=== PATIENT | female | born 1955 | race Caucasian/White ===

== ENCOUNTER 2019-01-20 22:23 | Inpatient (IN) | payer OTHER ==
[~2019-01-20] VITALS: Ht 160 cm; Wt 84.2 kg
[~2019-01-20 22:23] MED LIST: ACET325T33 PO; AMLO-218 PO; ASPI-817 PO; ATOR20TA38 PO; BISA10SU75 PR; CARV3.12 PO; CHOL2000 PO; FER325 PO; FURO-110 PO; GABA300C PO; GLUC1VIA7 IM; HEP5KI SC; LACT20SO2 PO; LANT3I SC; METH5SOL3 PO; NOVO3I SC; PANT40TA4 PO; POLY17PO6 PO; SAN30GM TOP; SENN-25 PO; TRAM50TA2 PO; ZOF4I IV; ZOLP5TAB PO
[2019-01-21] MEDS ORDERED: AMLO-147 PO (00:15)
[2019-01-21] MEDS ORDERED: GABA300S PO (00:15)
[2019-01-21] MEDS ORDERED: ASPI-1046 PO (00:15)
[2019-01-21] MEDS ORDERED: DOCU-144 PO (00:15)
[2019-01-21] MEDS ORDERED: SITA100T11 PO (00:15)
[2019-01-21] MEDS ORDERED: OMEP20CA16 PO (00:15)
[2019-01-21] MEDS ORDERED: ATOR-2 PO (00:15)
[2019-01-21] MEDS ORDERED: CARV3.1260 PO (00:15)
[2019-01-21] MEDS ORDERED: LISI10TA2 PO (00:15)
[2019-01-21 01:00] VITALS: BP 142/63; PULSE 68; RESP 17
[2019-01-21 02:00] VITALS: BP 126/59; RESP 18
[2019-01-21] MEDS ORDERED: ALBUTEROL/IPRATROPIUM (NEB) 3 ML AMP HHN PRN (05:30)
[2019-01-21] MEDS ORDERED: ZOLPIDEM 5 MG TAB PO PRN (05:30)
[2019-01-21] MEDS ORDERED: NACL 0.9% 3 ML SYG IV SCH (05:30)
[2019-01-21] MEDS ORDERED: LACTULOSE 30ML CUP PO PRN (05:30)
[2019-01-21] MEDS ORDERED: ACETAMINOPHEN 325 MG TAB PO PRN (05:30)
[2019-01-21] MEDS ORDERED: ONDANSETRON 4 MG INJ IV PRN (05:30)
[2019-01-21] MEDS ORDERED: BISACODYL 10 MG SUPP PR PRN (05:30)
[2019-01-21] MEDS ORDERED: METHADONE (1 MG/ML 5 ML PO UD SYG) PO SCH (06:00)
[2019-01-21] MEDS: GABAPENTIN 300 MG CAP PO SCH ×4 (06:17→22:15)
[2019-01-21] MEDS: PANTOPRAZOLE (EC) 40 MG TAB PO SCH (06:17)
[2019-01-21] MEDS: SOD CHLORIDE 0.9% 1,000 ML IV SCH ×3 (06:17→22:14)
[2019-01-21] MEDS: traMADol 50 MG TAB PO PRN ×3 (06:17→22:14)
[2019-01-21] MEDS ORDERED: PENDING SANTYL ORDER FOR WOUND CARE XX PRN (07:00)
[2019-01-21 08:36] VITALS: BP 126/60; PULSE 69; RESP 18
[2019-01-21] MEDS: HEPARIN 5,000 UNIT/1 ML VIAL SC SCH ×2 (09:05→22:14)
[2019-01-21] MEDS: FERROUS SULFATE (EC) 325 MG TAB PO SCH ×3 (09:06→22:16)
[2019-01-21] MEDS: SENNA/DOCUSATE NA (8.6MG/50MG) TAB PO SCH ×2 (09:06→22:16)
[2019-01-21] MEDS: DOCUSATE SODIUM 100 MG CAP PO SCH ×2 (09:07→22:16)
[2019-01-21] MEDS: ASPIRIN (EC) 81 MG TAB PO SCH (09:07)
[2019-01-21] MEDS: FUROSEMIDE 40 MG TAB PO SCH (09:07)
[2019-01-21] MEDS: LISINOPRIL 10 MG TAB PO SCH (09:07)
[2019-01-21] MEDS: AMLODIPINE 10 MG TAB PO SCH (09:08)
[2019-01-21] MEDS: POLYETHYLENE GLYCOL 17 GM PACKET PO SCH (09:08)
[2019-01-21] MEDS: COLLAGENASE 5 GM (UD JAR) TOP SCH (09:08)
[2019-01-21 14:19] VITALS: BP 132/63; PULSE 68; RESP 18
--- NOTE | 2019-01-21 17:29 | HP ---
Date/Time of Note Date/Time of Note DATE: 01/21/19 TIME: 17:29 Assessment/Plan VTE Prophylaxis Risk score (from Ns)>0 risk: 3 SCD applied (from [facility] [place]): No SCD contraindicated: bilateral amputee Pharmacological prophylaxis: heparin Lines/Catheters Urinary Cath still in place: No Assessment/Plan Hospital Course 63-year-old female with comorbidities including hypertension, diabetes mellitus, CAD status post CABG, peripheral vascular disease, diabetic neuropathy, dyslipidemia, chronic pain, and obesity who was transferred from an outside facility for further evaluation of right lower extremity pain and underlying rhabdomyolysis, who was admitted to inpatient setting for further treatment and evaluation. 1. Rhabdomyolysis. -Etiology unclear. -Continue IV hydration. -Hold statins. -Monitor renal function closely. 2. Right lower extremity pain. -Imaging studies from the transferring facility negative. -Continue pain control. -Continue gabapentin. 3. Diabetes mellitus type 2. -Hemoglobin A1c 13.1. -Continue sliding scale insulin along with pre-meal insulin and basal insulin. 4. Hypertension. -Continue antihypertensives. 5. Diabetic neuropathy. -Continue gabapentin. 6. CAD, status post CABG. -Continue aspirin. 7. Dyslipidemia. -Hold statins. -Low-cholesterol diet. 8. Obesity. -BMI 32 kg/m. Plan: The patient will be admitted to inpatient medical surgical floor. The patient will be started on a carbohydrate controlled diet. The patient will be started on DVT prophylaxis . The patient will remain a full code. Activities will be bedrest. The rest of the patient's management will be based on the clinical course and the results of diagnostic studies. Based on the patient's clinical presentation, she most probably requires at least 1 midnight's stay for further management and evaluation of her clinical presentation. The patient was seen in collaboration with Dr. Ruffin. Result Diagram: 01/21/19 0543 01/21/19 0543 Results 24hrs Laboratory Tests Test 01/21/19 05:43 White Blood Count 11.5 #H Red Blood Count 4.85 # Hemoglobin 13.3 # Hematocrit 40.5 # Mean Corpuscular Volume 83.5 Mean Corpuscular Hemoglobin 27.4 L Mean Corpuscular Hemoglobin Concent 32.8 Red Cell Distribution Width 13.6 Platelet Count 238 Mean Platelet Volume 10.9 #H Immature Granulocytes % 0.600 H Neutrophils % 76.1 Lymphocytes % 14.4 L Monocytes % 8.3 Eosinophils % 0.3 Basophils % 0.3 Nucleated Red Blood Cells % 0.0 Immature Granulocytes # 0.070 H Neutrophils # 8.8 H Lymphocytes # 1.7 Monocytes # 1.0 H Eosinophils # 0.0 Basophils # 0.0 Nucleated Red Blood Cells # 0.0 Sodium Level 140 Potassium Level 3.6 Chloride Level 102 Carbon Dioxide Level 26 Anion Gap 12 Blood Urea Nitrogen 23 H Creatinine 0.66 Est Glomerular Filtrat Rate mL/min > 60 Glucose Level 227 H Hemoglobin A1c 12.4 H Calcium Level 8.8 Total Bilirubin 0.6 Direct Bilirubin 0.00 Indirect Bilirubin 0.6 Aspartate Amino Transf (AST/SGOT) 69 H Alanine Aminotransferase (ALT/SGPT) 43 Alkaline Phosphatase 110 Creatine Kinase 1268 H Total Protein 6.7 Albumin 3.5 Globulin 3.20 Albumin/Globulin Ratio 1.09 Triglycerides Level 200 H Cholesterol Level 186 LDL Cholesterol, Calculated 99 HDL Cholesterol 47 Cholesterol/HDL Ratio 3.9 HPI/ROS Admit Date/Time Admit Date/Time Jan 20, 2019 at 23:08 Hx of Present Illness This is a 63-year-old female with past medical history of hypertension, diabetes mellitus type 2, peripheral vascular disease, CAD status post CABG, diabetic neuropathy, dyslipidemia, and chronic pain. The patient is a bilateral lower extremity amputee. The patient went to the local emergency room because of complaint of right lower extremity pain. The patient underwent imaging studies of the right hip and right knee at the transferring facility that was negative. However, the patient was noticed to have rhabdomyolysis. Therefore, the patient was transferred to [facility] for further management because of insurance reasons. The patient denied any fevers or chills. The patient denied any chest pain. The patient denied any dyspnea. The patient denied any nausea, vomiting, abdominal pain, or diarrhea. The patient is chronically incontinent of urine and wears a diaper. The patient denied any urinary symptoms including any changes in color, dysuria, or flank pain. ROS Constitutional: no complaints Eyes: no complaints ENT: no complaints Respiratory: no complaints Cardiovascular: no complaints Gastrointestinal: no complaints Genitourinary: other (Incontinence) Musculoskeletal: bone/joint pain Skin: no complaints Neurologic: no complaints Endocrine: no complaints Lymphatic: no complaints Psychological: no complaints Immunologic: no complaints PMH/Family/Social Past Medical History 1. Hypertension. 2. Type 2 diabetes mellitus 3. Peripheral vascular disease. 4. CAD, status post CABG. 5. Diabetic neuropathy 6. Dyslipidemia. 7. Chronic pain. 8. Obesity. Medications Current Medications Sodium Chloride 1,000 ml @ 125 mls/hr Q8H IV Last administered on 01/21/19 14:44; Admin Dose 125 MLS/HR; Start 01/21/19 at 05:22 IV Flush (NS 3 ml) 3 ml PER PROTOCOL IV ; Start 01/21/19 at 05:30 Ondansetron HCl (Zofran Inj) 4 mg Q6H PRN IV NAUSEA/VOMITING Last administered on 01/21/19 12:43; Admin Dose 4 MG; Start 01/21/19 at 05:30 Heparin Sodium (Porcine) (Heparin (5000 Units/1ml)) 5,000 unit Q12 SC Last administered on 01/21/19 09:05; Admin Dose 5,000 UNIT; Start 01/21/19 at 09:00 Albuterol/ Ipratropium (Duoneb) 3 ml Q2H RESP THERAPY PRN HHN SHORTNESS OF BREATH; Start 01/21/19 at 05:30 Acetaminophen (Tylenol Tab) 650 mg Q6H PRN PO PAIN LEVEL 1-3 OR FEVER; Start 01/21/19 at 05:30 Amlodipine Besylate (Norvasc) 10 mg DAILY PO Last administered on 01/21/19 09:08; Admin Dose 10 MG; Start 01/21/19 at 09:00 Aspirin (Halfprin) 81 mg DAILY PO Last administered on 01/21/19 09:07; Admin Dose 81 MG; Start 01/21/19 at 09:00 Atorvastatin Calcium (Lipitor) 80 mg HS PO ; Start 01/21/19 at 21:00 Bisacodyl (Dulcolax Supp) 10 mg DAILY PRN [place] CONSTIPATION; Start 01/21/19 at 05:30 Carvedilol (Coreg) 3.125 mg BID PO Last administered on 01/21/19 09:07; Admin Dose 3.125 MG; Start 01/21/19 at 09:00 Collagenase (Santyl) 1 applic DAILY TOP Last administered on 01/21/19 09:08; Admin Dose 1 APPLIC; Start 01/21/19 at 09:00 Docusate Sodium (Colace) 200 mg BID PO Last administered on 01/21/19 09:07; Admin Dose 200 MG; Start 01/21/19 at 09:00 Ferrous Sulfate (Ferrous Sulfate (Ec)) 325 mg TID PO Last administered on 01/21/19 12:43; Admin Dose 325 MG; Start 01/21/19 at 09:00 Furosemide (Lasix) 40 mg DAILY PO Last administered on 01/21/19 09:07; Admin Dose 40 MG; Start 01/21/19 at 09:00 Gabapentin (Neurontin) 300 mg TID PO Last administered on 01/21/19 12:43; Admin Dose 300 MG; Start 01/21/19 at 06:00 Insulin Glargine (Lantus) 10 units HS SC ; Start 01/21/19 at 21:00 Lactulose (Enulose) 20 gm Q6H PRN PO CONSTIPATION; Start 01/21/19 at 05:30 Lisinopril (Zestril) 10 mg DAILY PO Last administered on 01/21/19 09:07; Admin Dose 10 MG; Start 01/21/19 at 09:00 Pantoprazole (Protonix Tab) 40 mg DAILY@06 PO Last administered on 01/21/19 06:17; Admin Dose 40 MG; Start 01/21/19 at 06:00 Polyethylene Glycol (Miralax) 17 gm DAILY PO Last administered on 01/21/19 09:08; Admin Dose 17 GM; Start 01/21/19 at 09:00 Senna/Docusate Sodium (Senokot-S) 2 tab BID PO Last administered on 01/21/19 09:06; Admin Dose 2 TAB; Start 01/21/19 at 09:00 Tramadol HCl (Ultram) 50 mg Q6 PRN PO PAIN Last administered on 01/21/19 12:43; Admin Dose 50 MG; Start 01/21/19 at 05:30 Zolpidem Tartrate (Ambien) 5 mg HS PRN PO INSOMNIA; Start 01/21/19 at 05:30 [facility]iscellaneous [facility] This patient minor... PRN PRN XX WOUND CARE; Start 01/21/19 at 07:00 Coded Allergies: Penicillins (Verified Allergy, Intermediate, RASH, 03/20/16) Past Surgical History 1. CABG. 2. Right below-knee amputation. 3. Left above-knee amputation Past Surgical Hx: other Family History Significant Family History: diabetes, hypertension Social History The patient lives at home with her family. Alcohol Use: none Smoking Status: Never smoker Drug Use: none Exam/Review of Systems Vital Signs Vitals Vital Signs Date Temp Pulse Resp B/P (MAP) Pulse Ox O2 O2 Flow FiO2 Time Delivery Rate 01/21/19 97.8 68 18 132/63 92 Room Air 14:19 (86) 01/21/19 2.0 13:14 Exam Exam General: Obese,63 year-old female lying in bed in no apparent distress. HEENT: Normocephalic, atraumatic. Eyes: Anicteric sclerae, conjunctivae clear. ENT: Nasal septum midline, oral mucosa moist. Neck supple, no JVD noticed. Respiratory: Bilaterally clear breath sounds. No use of accessory muscles of respiration. No adventitious breath sounds. Cardiovascular: S1, S2 heard. Regular rate and rhythm. Abdomen: Soft, nontender, and nondistended. Bowel sounds positive in all 4 quadrants. Genitourinary: Deferred. Extremities: Below-knee amputation on the right. Above-knee amputation on the left. Neurologic: Cranial nerves II through XII grossly intact. The patient is awake, alert, and oriented. Additional Comments CT right knee without contrast No radiographic evidence for osteomyelitis. Below the knee amputation. There is no stranding in the subcutaneous fat or fluid collection. Extensive vascular calcification. No joint effusion. CT Right Femur without Contrast There is a vascular stent. Other vascular calcifications noted. There is no soft tissue mass, fluid collection, pathologic adenopathy. KODY OROZCO NP Jan 21, 2019 17:29
[2019-01-21 20:53] VITALS: BP 129/60; PULSE 69; RESP 16
[2019-01-21] MEDS ORDERED: ATORVASTATIN 80 MG TAB PO SCH (21:00)
[2019-01-21] MEDS: INSULIN GLARGINE [LANTus] (100 UNITS/ML) SYG SC SCH (22:12)
[2019-01-22] MEDS: morphine 2 MG INJ IV PRN ×4 (02:22→20:59)
[2019-01-22] MEDS ORDERED: GLUCOSE GEL 15 GRAM TUBE BUCCAL PRN (03:00)
[2019-01-22] MEDS ORDERED: GLUCAGON 1 MG INJ IM PRN (03:00)
[2019-01-22] MEDS ORDERED: GLUCOSE GEL 15 GRAM TUBE PO PRN ×2 (03:00)
[2019-01-22] MEDS ORDERED: DEXTROSE 50% 50 ML SYRINGE IV PRN ×2 (03:00)
[2019-01-22 03:28] VITALS: BP 139/63; PULSE 69; RESP 16
[2019-01-22] MEDS: PANTOPRAZOLE (EC) 40 MG TAB PO SCH (05:51)
[2019-01-22] MEDS: SOD CHLORIDE 0.9% 1,000 ML IV SCH ×3 (06:19→21:18)
[2019-01-22 07:55] VITALS: BP 133/60; PULSE 68; RESP 18
[2019-01-22] MEDS: ASPIRIN (EC) 81 MG TAB PO SCH (08:06)
[2019-01-22] MEDS: LISINOPRIL 10 MG TAB PO SCH (08:07)
[2019-01-22] MEDS: GABAPENTIN 300 MG CAP PO SCH ×3 (08:07→21:01)
[2019-01-22] MEDS: FERROUS SULFATE (EC) 325 MG TAB PO SCH ×3 (08:07→21:00)
[2019-01-22] MEDS: FUROSEMIDE 40 MG TAB PO SCH (08:08)
[2019-01-22] MEDS: AMLODIPINE 10 MG TAB PO SCH (08:08)
[2019-01-22] MEDS: POLYETHYLENE GLYCOL 17 GM PACKET PO SCH (08:08)
[2019-01-22] MEDS: DOCUSATE SODIUM 100 MG CAP PO SCH ×2 (08:09→21:01)
[2019-01-22] MEDS: SENNA/DOCUSATE NA (8.6MG/50MG) TAB PO SCH ×2 (08:09→21:09)
[2019-01-22] MEDS: HEPARIN 5,000 UNIT/1 ML VIAL SC SCH ×2 (08:10→21:06)
[2019-01-22] MEDS: COLLAGENASE 5 GM (UD JAR) TOP SCH (08:14)
[2019-01-22] MEDS: INSULIN ASPART [NOVOLOG] 3 ML PEN SC SCH ×4 (08:14→21:05)
[2019-01-22] MEDS ORDERED: POTASSIUM CHLORIDE (SR) 20 MEQ TAB PO STA (14:22)
[2019-01-22 14:53] VITALS: BP 126/60; PULSE 72; RESP 18
--- NOTE | 2019-01-22 15:06 | PN ---
Date/Time of Note Date/Time of Note DATE: 01/22/19 TIME: 15:04 Assessment/Plan VTE Prophylaxis Risk score (from Nsg)>0 risk: 4 SCD applied (from Ns): No SCD contraindicated: bilateral amputee Pharmacological prophylaxis: heparin Lines/Catheters IV Catheter Type (from Nrs): Peripheral IV Urinary Cath still in place: No Assessment/Plan Hospital Course SUBJECTIVE: Continues to complain of right lower extremity pain, on and off. OBJECTIVE: Physical Exam General: Obese,63 year-old female lying in bed in no apparent distress. HEENT: Normocephalic, atraumatic. Eyes: Anicteric sclerae, conjunctivae clear. ENT: Nasal septum midline, oral mucosa moist. Neck supple, no JVD noticed. Respiratory: Bilaterally clear breath sounds. No use of accessory muscles of respiration. No adventitious breath sounds. Cardiovascular: S1, S2 heard. Regular rate and rhythm. Abdomen: Soft, nontender, and nondistended. Bowel sounds positive in all 4 quadrants. Genitourinary: Deferred. Extremities: Below-knee amputation on the right. Above-knee amputation on the left. Neurologic: Cranial nerves II through XII grossly intact. The patient is awake, alert, and oriented. Labs & Vitals per chart ASSESSMENT & PLAN 63-year-old female with comorbidities including hypertension, diabetes mellitus, CAD status post CABG, peripheral vascular disease, diabetic neuropathy, dyslipidemia, chronic pain, and obesity who was transferred from an outside facility for further evaluation of right lower extremity pain and underlying rhabdomyolysis, who was admitted to inpatient setting for further treatment and evaluation. 1. Rhabdomyolysis. -Etiology unclear. -Continue IV hydration. -Hold statins. -Monitor renal function closely. 2. Right lower extremity pain. -Imaging studies from the transferring facility negative. -Continue pain control. -Continue gabapentin. -Obtain vascular surgery consult. 3. Diabetes mellitus type 2. -Hemoglobin A1c 13.1. -Continue sliding scale insulin along with pre-meal insulin and basal insulin. 4. Hypertension. -Continue antihypertensives. 5. Diabetic neuropathy. -Continue gabapentin. 6. CAD, status post CABG. -Continue aspirin. 7. Dyslipidemia. -Hold statins. -Low-cholesterol diet. 8. Obesity. -BMI 32 kg/m. 9. DVT prophylaxis. Subcutaneous heparin. 10. Plan.- -Continue IV fluids. -Continue pain control. -Await clinical improvement. The patient was seen in collaboration with Dr. Ruffin. Result Diagram: 01/22/1951801/22/19518 Results 24hrs Laboratory Tests Test 01/21/19 22:10 01/22/19 05:19 01/22/19 08:04 01/22/19 11:38 Bedside Glucose 270 H 169 201 White Blood Count 9.5 Red Blood Count 4.36 Hemoglobin 12.0 Hematocrit 37.4 Mean Corpuscular 85.8 Volume Mean Corpuscular 27.5 L Hemoglobin Mean Corpuscular 32.1 Hemoglobin Concent Red Cell 13.6 Distribution Width Platelet Count 159 # Mean Platelet Volume 12.0 H Immature 0.400 Granulocytes % Neutrophils % 63.3 Lymphocytes % 26.0 Monocytes % 9.3 Eosinophils % 0.5 Basophils % 0.5 Nucleated Red Blood 0.0 Cells % Immature 0.040 H Granulocytes # Neutrophils # 6.0 Lymphocytes # 2.5 Monocytes # 0.9 Eosinophils # 0.1 Basophils # 0.1 Nucleated Red Blood 0.0 Cells # Sodium Level 137 Potassium Level 3.4 L Chloride Level 102 Carbon Dioxide Level 29 Anion Gap 6 Blood Urea Nitrogen 15 Creatinine 0.54 Est Glomerular > 60 Filtrat Rate mL/min Glucose Level 202 Hemoglobin A1c 13.1 H Calcium Level 7.9 L Phosphorus Level 2.7 Magnesium Level 1.8 Creatine Kinase 1571 H Creatine Kinase 0.2 Index Creatinine Kinase MB 2.76 H (Mass) Troponin I 0.030 Exam/Review of Systems Exam Vitals Vital Signs Date Temp Pulse Resp B/P (MAP) Pulse Ox O2 O2 Flow FiO2 Time Delivery Rate 01/22/19 98.0 72 18 126/60 92 Room Air 14:53 (82) 01/21/19 2.0 13:14 Intake and Output 01/21/19 01/21/19 01/22/19 1515:00 23:00 07:00 IntakeIntake Total 1240 ml 1680 ml 1000 ml BalanceBalance 1240 ml 1680 ml 1000 ml Results Results 24hrs Laboratory Tests Test 01/21/19 22:10 01/22/19 05:19 01/22/19 08:04 01/22/19 11:38 Bedside Glucose 270 H 169 201 White Blood Count 9.5 Red Blood Count 4.36 Hemoglobin 12.0 Hematocrit 37.4 Mean Corpuscular 85.8 Volume Mean Corpuscular 27.5 L Hemoglobin Mean Corpuscular 32.1 Hemoglobin Concent Red Cell 13.6 Distribution Width Platelet Count 159 # Mean Platelet Volume 12.0 H Immature 0.400 Granulocytes % Neutrophils % 63.3 Lymphocytes % 26.0 Monocytes % 9.3 Eosinophils % 0.5 Basophils % 0.5 Nucleated Red Blood 0.0 Cells % Immature 0.040 H Granulocytes # Neutrophils # 6.0 Lymphocytes # 2.5 Monocytes # 0.9 Eosinophils # 0.1 Basophils # 0.1 Nucleated Red Blood 0.0 Cells # Sodium Level 137 Potassium Level 3.4 L Chloride Level 102 Carbon Dioxide Level 29 Anion Gap 6 Blood Urea Nitrogen 15 Creatinine 0.54 Est Glomerular > 60 Filtrat Rate mL/min Glucose Level 202 Hemoglobin A1c 13.1 H Calcium Level 7.9 L Phosphorus Level 2.7 Magnesium Level 1.8 Creatine Kinase 1571 H Creatine Kinase 0.2 Index Creatinine Kinase MB 2.76 H (Mass) Troponin I 0.030 Medications Medication Current Medications Sodium Chloride 1,000 ml @ 125 mls/hr Q8H IV Last administered on 01/22/19at 06:19; Admin Dose 125 MLS/HR; Start 01/21/19 at 05:22 IV Flush (NS 3 ml) 3 ml PER PROTOCOL IV ; Start 01/21/19 at 05:30 Ondansetron HCl (Zofran Inj) 4 mg Q6H PRN IV NAUSEA/VOMITING Last administered on 01/21/19at 12:43; Admin Dose 4 MG; Start 01/21/19 at 05:30 Heparin Sodium (Porcine) (Heparin (5000 Units/1ml)) 5,000 unit Q12 SC Last administered on 01/22/19at 08:10; Admin Dose 5,000 UNIT; Start 01/21/19 at 09:00 Albuterol/ Ipratropium (Duoneb) 3 ml Q2H RESP THERAPY PRN HHN SHORTNESS OF MAX TH; Start 01/21/19 at 05:30 Acetaminophen (Tylenol Tab) 650 mg Q6H PRN PO PAIN LEVEL 1-3 OR FEVER; Start 01/21/19 at 05:30 Amlodipine Besylate (Norvasc) 10 mg DAILY PO Last administered on 01/22/19at 08:08; Admin Dose 10 MG; Start 01/21/19 at 09:00 Aspirin (Halfprin) 81 mg DAILY PO Last administered on 01/22/19 08:06; Admin Dose 81 MG; Start 01/21/19 at 09:00 Bisacodyl (Dulcolax Supp) 10 mg DAILY PRN [place] CONSTIPATION; Start 01/21/19 at 05:30 Carvedilol (Coreg) 3.125 mg BID PO Last administered on 01/22/19 08:08; Admin Dose 3.125 MG; Start 01/21/19 at 09:00 Collagenase (Santyl) 1 applic DAILY TOP Last administered on 01/21/19 09:08; Admin Dose 1 APPLIC; Start 01/21/19 at 09:00 Docusate Sodium (Colace) 200 mg BID PO Last administered on 01/21/19 22:16; Admin Dose 200 MG; Start 01/21/19 at 09:00 Ferrous Sulfate (Ferrous Sulfate (Ec)) 325 mg TID PO Last administered on 01/22/19 13:07; Admin Dose 325 MG; Start 01/21/19 at 09:00 Furosemide (Lasix) 40 mg DAILY PO Last administered on 01/22/19 08:08; Admin Dose 40 MG; Start 01/21/19 at 09:00 Gabapentin (Neurontin) 300 mg TID PO Last administered on 01/22/19 13:07; Admin Dose 300 MG; Start 01/21/19 at 06:00 Insulin Glargine (Lantus) 10 units HS SC Last administered on 01/21/19 22:12; Admin Dose 10 UNITS; Start 01/21/19 at 21:00 Lactulose (Enulose) 20 gm Q6H PRN PO CONSTIPATION; Start 01/21/19 at 05:30 Lisinopril (Zestril) 10 mg DAILY PO Last administered on 01/22/19 08:07; Admin Dose 10 MG; Start 01/21/19 at 09:00 Pantoprazole (Protonix Tab) 40 mg DAILY@06 PO Last administered on 01/22/19 05:51; Admin Dose 40 MG; Start 01/21/19 at 06:00 Polyethylene Glycol (Miralax) 17 gm DAILY PO Last administered on 01/21/19 09:08; Admin Dose 17 GM; Start 01/21/19 at 09:00 Senna/Docusate Sodium (Senokot-S) 2 tab BID PO Last administered on 01/21/19at 22:16; Admin Dose 2 TAB; Start 01/21/19 at 09:00 Tramadol HCl (Ultram) 50 mg Q6 PRN PO PAIN Last administered on 01/21/19at 22:14; Admin Dose 50 MG; Start 01/21/19 at 05:30 Zolpidem Tartrate (Ambien) 5 mg HS PRN PO INSOMNIA; Start 01/21/19 at 05:30 Miscellaneous Information (Pending [facility] Order For Wound Care) This patient minor... PRN PRN XX WOUND CARE; Start 01/21/19 at 07:00 Morphine Sulfate (morphine) 2 mg Q4H PRN IV SEVERE PAIN LEVEL 7-10 Last administered on 01/22/19at 06:24; Admin Dose 2 MG; Start 01/22/19 at 00:00 Diagnostic Test (Pha) (Accu-Chek) 1 ea 02 XX ; Start 01/23/19 at 02:00 Insulin Aspart (Novolog Insulin Pen) NOVOLOG *MILD* ALGORITHM WITH MEALS BEDTIME SC Last administered on 01/22/19at 12:40; Admin Dose 2 UNIT; Start 01/22/19 at 08:00 Miscellaneous Information 1 ea NOTE XX ; Start 01/22/19 at 03:00 Glucose (Glutose) 15 gm Q15M PRN PO DECREASED GLUCOSE; Start 01/22/19 at 03:00 Glucose (Glutose) 22.5 gm Q15M PRN PO DECREASED GLUCOSE; Start 01/22/19 at 03:00 Dextrose (D50w Syringe) 25 ml Q15M PRN IV DECREASED GLUCOSE; Start 01/22/19 at 03:00 Dextrose (D50w Syringe) 50 ml Q15M PRN IV DECREASED GLUCOSE; Start 01/22/19 at 03:00 Glucagon (Glucagen) 1 mg Q15M PRN IM DECREASED GLUCOSE; Start 01/22/19 at 03:00 Glucose (Glutose) 15 gm Q15M PRN BUCCAL DECREASED GLUCOSE; Start 01/22/19 at 03:00 KODY OROZCO NP Jan 22, 2019 15:06
[2019-01-22] MEDS: traMADol 50 MG TAB PO PRN (17:37)
[2019-01-22 20:10] VITALS: BP 139/59; PULSE 69; RESP 18
[2019-01-22] MEDS: INSULIN GLARGINE [LANTus] (100 UNITS/ML) SYG SC SCH (21:07)
[2019-01-22] MEDS ORDERED: morphine 2 MG INJ IV STA (22:42)
[2019-01-23] MEDS: morphine 2 MG INJ IV PRN ×6 (01:53→22:01)
[2019-01-23] MEDS: ACCU-CHEK XX SCH (02:00)
[2019-01-23 02:15] VITALS: BP 149/67; PULSE 69; RESP 18
[2019-01-23] MEDS: SOD CHLORIDE 0.9% 1,000 ML IV SCH ×3 (05:43→17:31)
[2019-01-23] MEDS: PANTOPRAZOLE (EC) 40 MG TAB PO SCH (06:18)
--- NOTE | 2019-01-23 07:17 | CONS ---
Assessment/Plan Assessment/Plan Assessment/Plan (Daily) Bilateral lower extremity pain both stumps Type 2 diabetes hemoglobin A1c of 13.1 Diabetic neuropathy currently being treated which is gabapentin History of hypertension History of dyslipidemia Obesity Pain out of control bilateral lower extremity neuropathic pain Had a conversation with her concerning difficulty of treating her type of neuropathic pain. Currently she is requesting increased IV morphine but discontinue the tramadol. I have concerns about increasing the morphine which I have expressed to her. Therefore I will switch her over to MS Contin 15 mg twice daily, discontinue the IV morphine in the morning increase her gabapentin to 300 mg twice daily and 600 mg at lunch and trial of nitroglycerin ointment bilateral lower extremity stumps daily. Consultation Date/Type/Reason Admit Date/Time Jan 20, 2019 at 23:08 Date/Time of Note DATE: 01/23/19 TIME: 07:15 Hx of Present Illness 63-year-old female admitted to [facility] with bilateral hip and thigh pain. 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 Patient states her pain began to increase in severity approximately 1 week prior to this presentation. She describes as a 10/10. She has no pain medication at home other than gabapentin and Tylenol which have not been effective. She does not remember having a fall denies any trauma of any kind recently. Denies nausea vomiting associated with her pain, pain does not radiate into her flanks abdomen or buttocks. She does not describe phantom type pain bilateral lower extremities. Pain does not interfere with her physical functioning social relationship and sleeping patterns. She denies itching mental cloudiness sweating fatigue drowsiness she has no past medical history of purposeful oversedation negative mood changes she does not appear to be intoxicated she is not unkempt she has not asked for specific pain control medications she is not negotiating for higher dose of the pain control medications. I do not have the impression that she is asked of her pain command medications and response to situational stressors nor does she cheo pain control medications. Denies incontinence of feces or urine. Denies allodynia or hyperalgesia Constitutional: no complaints, improved; No chills, No diaphoresis, No disoriented, No febrile, No poor po, No requiring IVF, No requiring O2, No other Eyes: No no complaints, No pain, No discharge, No redness, No visual change, No other ENT: No no complaints, No bleeding, No pain, No congestion, No discharge, No dysphagia, No sore throat, No other Respiratory: No no complaints, No pain, No cough, No pleuritic pain, No shortness of breath, No sputum, No wheezing, No other Cardiovascular: No no complaints, No chest pain, No edema, No lightheadedness, No orthopenea, No palpitations, No paroxysmal nocturnal dyspnea, No other Gastrointestinal: No no complaints, No pain, No blood, No constipation, No decreased appetite, No diarrhea, No flatus, No nausea, No passing stool, No vomiting, No other Genitourinary: No no complaints, No bleeding, No dysuria, No discharge, No flank pain, No hematuria, No other Musculoskeletal: other (As per history of present illness) Skin: No no complaints, No bruising, No erythema, No laceration, No pruritis, No rash, No skin lesions, No other Neurologic: other (As per history of present) Endocrine: other (Type 2 diabetes) Psychological: anxiety Past Medical History Home Meds Active Scripts Tramadol HCl (Tramadol HCl) 50 Mg Tablet, 50 MG PO Q6 PRN for PAIN, #7 TAB Prov:DANIEL BRENNAN 05/05/16 Tramadol HCl (Tramadol HCl) 50 Mg Tablet, 50 MG PO Q6 PRN for PAIN, #8 TAB Prov:DANIEL BRENNAN 05/05/16 Methadone Hcl* (Methadone*) 5 Mg/5 Ml Solution, 2 MG PO Q6 for 14 Days Prov:BRANDO CARTER 03/28/16 Sennosides/Docusate Sodium (Senna-Time S Tablet) 1 Udtab Tablet, 2 TAB PO BID for 30 Days, TAB Prov:BRANDO CARTER 03/28/16 Polyethylene Glycol* (Miralax*) 17 Gm Powd.pack, 17 GM PO DAILY for 30 Days Prov:BRANDO CARTER 03/28/16 Collagenase* (Santyl*) 30 Gm Oint..gm., 1 APPLIC TOP DAILY for 30 Days Prov:BRANDO CARTER 03/28/16 Pantoprazole* (Pantoprazole*) 40 Mg Tabec, 40 MG PO DAILY@06 for 30 Days Prov:REHANA GOLD V. [employer]TER OR EXPORTER 01/29/16 Ondansetron Hcl* (Zofran*) 2 Mg/Ml Soln, 4 MG IV Q4H PRN for NAUSEA AND/OR VOMITING for 30 Days Prov:REHANA GOLD [employer] EXPORTER 01/29/16 Insulin Aspart* (Novolog Insulin Pen*) 100 Unit/Ml Soln, 0 UNIT SC WITH MEALS BEDTIME for 30 Days Prov:REHANA GOLD V[employer] EXPORTER 01/29/16 Heparin Sodium,Porcine/Pf (Heparin Na 5,000 Units/0.5 Ml) 5,000 Unit/0.5 Ml Soln, 5000 UNIT SC Q12 for 30 Days Prov:REHANA GOLD [employer]TER 01/29/16 Gabapentin* (Neurontin*) 300 Mg Cap, 300 MG PO TID for 30 Days, CAP Prov:REHANA GOLD [employer] EX[employer]TER 01/29/16 Glucagon* (Glucagen*) 1 Mg Soln, 1 MG IM Q15M PRN for DECREASED GLUCOSE for 30 Days Prov:REHANA GOLD [employer]TER 01/29/16 Bisacodyl* (Bisacodyl*) 10 Mg Supp, 10 MG [place] DAILY PRN for CONSTIPATION for 30 Days, SUPP Prov:REHANA GOLD [employer] EXPORTER 01/29/16 Acetaminophen* (Tylenol*) 325 Mg Tab, 650 MG PO Q6H PRN for PAIN LEVEL 1-3 OR FEVER for 30 Days, TAB Prov:REHANA GOLD [employer] EX[employer]TER 01/29/16 Zolpidem Tartrate (Ambien Larry) 5 Mg Tab, 5 MG PO HS PRN for INSOMNIA for 30 Days, TAB Prov:REHANA GOLD [employer]TER 01/28/16 Insulin Glargine* (Lantus*) 100 Unit/Ml Soln, 10 UNIT SC HS for 30 Days Prov:REHANA GOLD [employer]TER 01/28/16 Furosemide* (Lasix*) 20 Mg Tab, 40 MG PO DAILY for 30 Days, TAB Prov:REHANA GOLD [employer]TER 01/28/16 Ferrous Sulfate* (Ferrous Sulfate*) 325 Mg Tabec, 325 MG PO TID for 30 Days, TAB Prov:REHANA GOLD V[employer] EX[employer]TER 01/28/16 Cholecalciferol* (Vitamin D3*) 2,000 Unit Cap, 2000 UNIT PO DAILY for 30 Days, CAP Prov:GOLDREHANA V. [employer]TER OR EXPORTER 01/28/16 Carvedilol* (Coreg*) 3.125 Mg Tab, 3.125 MG PO BID for 30 Days, TAB Prov:GOLDGARCIAREHANA V. IMP[employer]TER OR EXPORTER 01/28/16 Atorvastatin Calcium* (Atorvastatin Calcium*) 20 Mg Tab, 80 MG PO HS for 30 Days, TAB Prov:GOLDREHANA V. [employer]TER OR EXPORTER 01/28/16 Aspirin* (Aspirin* EC) 81 Mg Tabec, 81 MG PO DAILY for 30 Days Prov:GOLDGARCIAREHANA V. IMPORTER OR EXPORTER 01/28/16 Amlodipine Besylate* (Norvasc*) 10 Mg Tab, 10 MG PO DAILY for 30 Days, TAB Prov:GOLDOMKARA V. IMP[employer]TER OR EXPORTER 01/28/16 Reported Medications Gabapentin (GABAPENTIN) 300 Mg/6 Ml Solution, 300 MG PO TID 01/21/19 Omeprazole* (Omeprazole*) 20 Mg Capsule.dr, 20 MG PO DAILY, #30 CAP 01/21/19 Atorvastatin* (Atorvastatin*) 80 Mg Tablet, 80 MG PO QHS, #30 TAB 01/21/19 Carvedilol* (Carvedilol*) 3.125 Mg Tablet, 3.125 MG PO BID, #60 TAB 01/21/19 Aspirin* (Aspirin* (EC)) 81 Mg Tablet.dr, 81 MG PO DAILY, TAB 01/21/19 Lisinopril* (Lisinopril*) 10 Mg Tablet, 10 MG PO DAILY, #30 TAB 01/21/19 Docusate Sodium* (Colace*) 100 Mg Capsule, 200 MG PO BID, #60 CAP 01/21/19 Amlodipine Besylate* (Amlodipine Besylate*) 10 Mg Tablet, 10 MG PO DAILY, #30 TAB 01/21/19 Sitagliptin* (Januvia*) 100 Mg Tablet, 100 MG PO BID, #30 TAB 01/21/19 Lactulose* (Lactulose*) 20 Gm/30 Ml Solution, 20 GM PO Q6H PRN for CONSTIPATION, ML 03/20/16 Medications Current Medications Sodium Chloride 1,000 ml @ 125 mls/hr Q8H IV Last administered on 01/23/19 05:43; Admin Dose 125 MLS/HR; Start 01/21/19 at 05:22 IV Flush (NS 3 ml) 3 ml PER PROTOCOL IV ; Start 01/21/19 at 05:30 Ondansetron HCl (Zofran Inj) 4 mg Q6H PRN IV NAUSEA/VOMITING Last administered on 01/21/19 12:43; Admin Dose 4 MG; Start 01/21/19 at 05:30 Heparin Sodium (Porcine) (Heparin (5000 Units/1ml)) 5,000 unit Q12 SC Last administered on 01/22/19 21:06; Admin Dose 5,000 UNIT; Start 01/21/19 at 09:00 Albuterol/ Ipratropium (Duoneb) 3 ml Q2H RESP THERAPY PRN HHN SHORTNESS OF BREATH; Start 01/21/19 at 05:30 Acetaminophen (Tylenol Tab) 650 mg Q6H PRN PO PAIN LEVEL 1-3 OR FEVER; Start 01/21/19 at 05:30 Amlodipine Besylate (Norvasc) 10 mg DAILY PO Last administered on 01/22/19 08:08; Admin Dose 10 MG; Start 01/21/19 at 09:00 Aspirin (Halfprin) 81 mg DAILY PO Last administered on 01/22/19 08:06; Admin Dose 81 MG; Start 01/21/19 at 09:00 Bisacodyl (Dulcolax Supp) 10 mg DAILY PRN [place] CONSTIPATION; Start 01/21/19 at 05:30 Carvedilol (Coreg) 3.125 mg BID PO Last administered on 01/22/19 21:10; Admin Dose 3.125 MG; Start 01/21/19 at 09:00 Collagenase (Santyl) 1 applic DAILY TOP Last administered on 01/21/19 09:08; Admin Dose 1 APPLIC; Start 01/21/19 at 09:00 Docusate Sodium (Colace) 200 mg BID PO Last administered on 01/22/19 21:01; Admin Dose 200 MG; Start 01/21/19 at 09:00 Ferrous Sulfate (Ferrous Sulfate (Ec)) 325 mg TID PO Last administered on 01/22 21:00; Admin Dose 325 MG; Start 01/21/19 at 09:00 Furosemide (Lasix) 40 mg DAILY PO Last administered on 01/22/19 08:08; Admin Dose 40 MG; Start 01/21/19 at 09:00 Gabapentin (Neurontin) 300 mg TID PO Last administered on 01/22/19at 21:01; Admin Dose 300 MG; Start 01/21/19 at 06:00 Insulin Glargine (Lantus) 10 units HS SC Last administered on 01/22/19at 21:07; Admin Dose 10 UNITS; Start 01/21/19 at 21:00 Lactulose (Enulose) 20 gm Q6H PRN PO CONSTIPATION; Start 01/21/19 at 05:30 Lisinopril (Zestril) 10 mg DAILY PO Last administered on 01/22/19 08:07; Admin Dose 10 MG; Start 01/21/19 at 09:00 Pantoprazole (Protonix Tab) 40 mg DAILY@06 PO Last administered on 01/23/19 06:18; Admin Dose 40 MG; Start 01/21/19 at 06:00 Polyethylene Glycol (Miralax) 17 gm DAILY PO Last administered on 01/21/19at 09:08; Admin Dose 17 GM; Start 01/21/19 at 09:00 Senna/Docusate Sodium (Senokot-S) 2 tab BID PO Last administered on 01/22/19 21:09; Admin Dose 2 TAB; Start 01/21/19 at 09:00 Tramadol HCl (Ultram) 50 mg Q6 PRN PO PAIN Last administered on 01/22/19at 17:37; Admin Dose 50 MG; Start 01/21/19 at 05:30 Zolpidem Tartrate (Ambien) 5 mg HS PRN PO INSOMNIA; Start 01/21/19 at 05:30 [facility]isc[facility] This patient minor... PRN PRN XX WOUND CARE; Start 01/21/19 at 07:00 Diagnostic Test (Pha) (Accu-Chek) 1 ea 02 XX ; Start 01/23/19 at 02:00 Insulin Aspart (Novolog Insulin Pen) NOVOLOG *MILD* ALGORITHM WITH MEALS BEDTIME SC Last administered on 01/22/19at 21:05; Admin Dose 1 UNIT; Start 01/22/19 at 08:00 Miscellaneous Information 1 ea NOTE XX ; Start 01/22/19 at 03:00 Glucose (Glutose) 15 gm Q15M PRN PO DECREASED GLUCOSE; Start 01/22/19 at 03:00 Glucose (Glutose) 22.5 gm Q15M PRN PO DECREASED GLUCOSE; Start 01/22/19 at 03:00 Dextrose (D50w Syringe) 25 ml Q15M PRN IV DECREASED GLUCOSE; Start 01/22/19 at 03:00 Dextrose (D50w Syringe) 50 ml Q15M PRN IV DECREASED GLUCOSE; Start 01/22/19 at 03:00 Glucagon (Glucagen) 1 mg Q15M PRN IM DECREASED GLUCOSE; Start 01/22/19 at 03:00 Glucose (Glutose) 15 gm Q15M PRN BUCCAL DECREASED GLUCOSE; Start 01/22/19 at 03:00 Morphine Sulfate (morphine) 2 mg Q3H PRN IV SEVERE PAIN LEVEL 7-10 Last admi nistered on 01/23/19at 05:41; Admin Dose 2 MG; Start 01/23/19 at 00:00 Allergies: Coded Allergies: Penicillins (Verified Allergy, Intermediate, RASH, 03/20/16) Past Surgical History Past Surgical Hx: other Social History Alcohol Use: none Smoking Status: Never smoker Drug Use: none Exam/Review of Systems Exam Vitals Vital Signs Date Temp Pulse Resp B/P (MAP) Pulse Ox O2 O2 Flow FiO2 Time Delivery Rate 01/23/19 98.6 69 18 149/67 94 02:15 (94) 01/22/19 Room Air 14:53 01/21/19 2.0 13:14 Intake and Output 01/22/19 01/22/19 01/23/19 1515:00 23:00 07:00 IntakeIntake Total 645 ml 320 ml 120 ml BalanceBalance 645 ml 320 ml 120 ml Constitutional: alert, oriented, well developed Psych: anxiety Head: normocephalic, atraumatic; No lacerations, No hematomas, No other ENMT: nl external ears & nose, nl lips & teeth, nl nasal mucosa & septum; No mucosa pink and moist, No intubated, No tympanic membranes, No other Neck: No supple, No non-tender, No jvd, No bruits, No masses, No thyromegaly, No nuchal rigidity, No other Respiratory: No clear to auscultation, No normal air movement, No congested cough, No crackles/rales, No diminished breath sounds, No intercostal retraction, No labored breathing, No respirations, No tactile fremitus, No wheezing, No other Cardiovascular: regular rate and rhythm, nl pulses; No bruits, No diastolic murmur, No edema, No gallop, No irregular rhythm, No jugular venous distention (JVD), No murmurs/extra sounds, No rub, No systolic murmur, No S3, No S4, No other Gastrointestinal: soft, nl liver, spleen, non-tender; No ascites, No bowel sounds, No distended, No firm, No hepatomegaly, No mass, No rebound or guarding, No splenomegaly, No surgical scars, No tender, No other Musculoskeletal: nl extremities to inspection, nl gait and stance Extremities: other (Bilateral below the knee amputation, nonerythematous nonedematous without streaking erythema or flocculence nontender to the touch bilaterally) Neurological: [employer] II-XII intact, nl mental status, nl speech, nl strength Results Result Diagram: 01/23/19 0557 01/22/19 0519 Results 24hrs Laboratory Tests Test 01/22/19 08:04 01/22/19 11:38 01/22/19 17:41 01/22/19 21:04 Bedside Glucose 169 201 193 194 Test 01/23/19 01:57 01/23/19 05:57 Bedside Glucose 198 White Blood Count 9.7 Red Blood Count 4.54 Hemoglobin 12.5 Hematocrit 38.7 Mean Corpuscular 85.2 Volume Mean Corpuscular 27.5 L Hemoglobin Mean Corpuscular 32.3 Hemoglobin Concent Red Cell 13.4 Distribution Width Platelet Count 188 Mean Platelet Volume 11.6 H Immature 0.500 H Granulocytes % Neutrophils % 63.6 Lymphocytes % 25.1 Monocytes % 9.1 Eosinophils % 1.3 Basophils % 0.4 Nucleated Red Blood 0.0 Cells % Immature 0.050 H Granulocytes # Neutrophils # 6.2 Lymphocytes # 2.4 Monocytes # 0.9 Eosinophils # 0.1 Basophils # 0.0 Nucleated Red Blood 0.0 Cells # Medications Medication Current Medications Sodium Chloride 1,000 ml @ 125 mls/hr Q8H IV Last administered on 01/23/19at 05:43; Admin Dose 125 MLS/HR; Start 01/21/19 at 05:22 IV Flush (NS 3 ml) 3 ml PER PROTOCOL IV ; Start 01/21/19 at 05:30 Ondansetron HCl (Zofran Inj) 4 mg Q6H PRN IV NAUSEA/VOMITING Last administered on 01/21/19at 12:43; Admin Dose 4 MG; Start 01/21/19 at 05:30 Heparin Sodium (Porcine) (Heparin (5000 Units/1ml)) 5,000 unit Q12 SC Last administered on 01/22/19 21:06; Admin Dose 5,000 UNIT; Start 01/21/19 at 09:00 Albuterol/ Ipratropium (Duoneb) 3 ml Q2H RESP THERAPY PRN HHN SHORTNESS OF BREATH; Start 01/21/19 at 05:30 Acetaminophen (Tylenol Tab) 650 mg Q6H PRN PO PAIN LEVEL 1-3 OR FEVER; Start 01/21/19 at 05:30 Amlodipine Besylate (Norvasc) 10 mg DAILY PO Last administered on 01/22/19 08:08; Admin Dose 10 MG; Start 01/21/19 at 09:00 Aspirin (Halfprin) 81 mg DAILY PO Last administered on 01/22/19 08:06; Admin Dose 81 MG; Start 01/21/19 at 09:00 Bisacodyl (Dulcolax Supp) 10 mg DAILY PRN [place] CONSTIPATION; Start 01/21/19 at 05:30 Carvedilol (Coreg) 3.125 mg BID PO Last administered on 01/22/19 21:10; Admin Dose 3.125 MG; Start 01/21/19 at 09:00 Collagenase (Santyl) 1 applic DAILY TOP Last administered on 01/21/19 09:08; Admin Dose 1 APPLIC; Start 01/21/19 at 09:00 Docusate Sodium (Colace) 200 mg BID PO Last administered on 01/22/19 21:01; Admin Dose 200 MG; Start 01/21/19 at 09:00 Ferrous Sulfate (Ferrous Sulfate (Ec)) 325 mg TID PO Last administered on 01/22/19 21:00; Admin Dose 325 MG; Start 01/21/19 at 09:00 Furosemide (Lasix) 40 mg DAILY PO Last administered on 01/22/19 08:08; Admin Dose 40 MG; Start 01/21/19 at 09:00 Gabapentin (Neurontin) 300 mg TID PO Last administered on 01/22/19at 21:01; Admin Dose 300 MG; Start 01/21/19 at 06:00 Insulin Glargine (Lantus) 10 units HS SC Last administered on 01/22/19at 21:07; Admin Dose 10 UNITS; Start 01/21/19 at 21:00 Lactulose (Enulose) 20 gm Q6H PRN PO CONSTIPATION; Start 01/21/19 at 05:30 Lisinopril (Zestril) 10 mg DAILY PO Last administered on 01/22/19 08:07; Admin Dose 10 MG; Start 01/21/19 at 09:00 Pantoprazole (Protonix Tab) 40 mg DAILY@06 PO Last administered on 01/23/19at 06:18; Admin Dose 40 MG; Start 01/21/19 at 06:00 Polyethylene Glycol (Miralax) 17 gm DAILY PO Last administered on 01/21/19at 09:08; Admin Dose 17 GM; Start 01/21/19 at 09:00 Senna/Docusate Sodium (Senokot-S) 2 tab BID PO Last administered on 01/22/19at 21:09; Admin Dose 2 TAB; Start 01/21/19 at 09:00 Tramadol HCl (Ultram) 50 mg Q6 PRN PO PAIN Last administered on 01/22/19at 17 :37; Admin Dose 50 MG; Start 01/21/19 at 05:30 Zolpidem Tartrate (Ambien) 5 mg HS PRN PO INSOMNIA; Start 01/21/19 at 05:30 Miscellaneous Information (Pending [facility] Order For Wound Care) This patient minor... PRN PRN XX WOUND CARE; Start 01/21/19 at 07:00 Diagnostic Test (Pha) (Accu-Chek) 1 ea 02 XX ; Start 01/23/19 at 02:00 Insulin Aspart (Novolog Insulin Pen) NOVOLOG *MILD* ALGORITHM WITH MEALS BEDTIME SC Last administered on 01/22/19at 21:05; Admin Dose 1 UNIT; Start 01/22/19 at 08:00 Miscellaneous Information 1 ea NOTE XX ; Start 01/22/19 at 03:00 Glucose (Glutose) 15 gm Q15M PRN PO DECREASED GLUCOSE; Start 01/22/19 at 03:00 Glucose (Glutose) 22.5 gm Q15M PRN PO DECREASED GLUCOSE; Start 01/22/19 at 03:00 Dextrose (D50w Syringe) 25 ml Q15M PRN IV DECREASED GLUCOSE; Start 01/22/19 at 03:00 Dextrose (D50w Syringe) 50 ml Q15M PRN IV DECREASED GLUCOSE; Start 01/22/19 at 03:00 Glucagon (Glucagen) 1 mg Q15M PRN IM DECREASED GLUCOSE; Start 01/22/19 at 03:00 Glucose (Glutose) 15 gm Q15M PRN BUCCAL DECREASED GLUCOSE; Start 01/22/19 at 03:00 Morphine Sulfate (morphine) 2 mg Q3H PRN IV SEVERE PAIN LEVEL 7-10 Last administered on 01/23/19at 05:41; Admin Dose 2 MG; Start 01/23/19 at 00:00 MYKE HOUGH Jan 23, 2019 07:17
[2019-01-23 08:07] VITALS: BP 153/69; PULSE 69; RESP 18
[2019-01-23] MEDS: INSULIN ASPART [NOVOLOG] 3 ML PEN SC SCH ×4 (08:20→21:13)
[2019-01-23] MEDS: POLYETHYLENE GLYCOL 17 GM PACKET PO SCH ×2 (09:00→21:00)
[2019-01-23] MEDS: SENNA/DOCUSATE NA (8.6MG/50MG) TAB PO SCH ×2 (09:00→21:03)
[2019-01-23] MEDS: DOCUSATE SODIUM 100 MG CAP PO SCH ×2 (09:00→21:01)
[2019-01-23] MEDS: GABAPENTIN 300 MG CAP PO SCH ×2 (09:22→21:02)
[2019-01-23] MEDS: AMLODIPINE 10 MG TAB PO SCH (09:24)
[2019-01-23] MEDS: LISINOPRIL 10 MG TAB PO SCH (09:26)
[2019-01-23] MEDS: FERROUS SULFATE (EC) 325 MG TAB PO SCH ×3 (09:27→21:17)
[2019-01-23] MEDS: ASPIRIN (EC) 81 MG TAB PO SCH (09:28)
[2019-01-23] MEDS: FUROSEMIDE 40 MG TAB PO SCH (09:28)
[2019-01-23] MEDS: COLLAGENASE 5 GM (UD JAR) TOP SCH (09:30)
[2019-01-23] MEDS: HEPARIN 5,000 UNIT/1 ML VIAL SC SCH ×2 (09:31→21:11)
[2019-01-23] MEDS: morphine (ER) 15 MG TAB PO SCH ×2 (13:26→21:03)
[2019-01-23] MEDS: NITROGLYCERIN 2% 1 GM OINT PKT TD SCH (13:27)
[2019-01-23 15:16] VITALS: BP 146/66; PULSE 69; RESP 18
--- NOTE | 2019-01-23 15:29 | PN ---
Date/Time of Note Date/Time of Note DATE: 01/23/19 TIME: 15:29 Assessment/Plan VTE Prophylaxis Risk score (from Nsg)>0 risk: 4 SCD applied (from Ns): No SCD contraindicated: bilateral amputee Pharmacological prophylaxis: heparin Lines/Catheters IV Catheter Type (from [facility]): Peripheral IV Urinary Cath still in place: No Assessment/Plan Hospital Course SUBJECTIVE: Continues to complain of right lower extremity pain, on and off. OBJECTIVE: Physical Exam General: Obese,63 year-old female lying in bed in no apparent distress. HEENT: Normocephalic, atraumatic. Eyes: Anicteric sclerae, conjunctivae clear. ENT: Nasal septum midline, oral mucosa moist. Neck supple, no JVD noticed. Respiratory: Bilaterally clear breath sounds. No use of accessory muscles of respiration. No adventitious breath sounds. Cardiovascular: S1, S2 heard. Regular rate and rhythm. Abdomen: Soft, nontender, and nondistended. Bowel sounds positive in all 4 quadrants. Genitourinary: Deferred. Extremities: Below-knee amputation on the right. Above-knee amputation on the left. Neurologic: Cranial nerves II through XII grossly intact. The patient is awake, alert, and oriented. Labs & Vitals per chart ASSESSMENT & PLAN 63-year-old female with comorbidities including hypertension, diabetes mellitus, CAD status post CABG, peripheral vascular disease, diabetic neuropathy, dyslipidemia, chronic pain, and obesity who was transferred from an outside facility for further evaluation of right lower extremity pain and underlying rhabdomyolysis, who was admitted to inpatient setting for further treatment and evaluation. 1. Rhabdomyolysis. -Etiology unclear. -Continue IV hydration. -Hold statins. -Monitor renal function closely. 2. Right lower extremity pain. -Imaging studies from the transferring facility negative. -Continue pain control. -Continue gabapentin. 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 -Obtain vascular surgery consult. 3. Diabetes mellitus type 2. -Hemoglobin A1c 13.1. -Continue sliding scale insulin along with pre-meal insulin and basal insulin. 4. Hypertension. -Continue antihypertensives. 5. Diabetic neuropathy. -Continue gabapentin. 6. CAD, status post CABG. -Continue aspirin. 7. Dyslipidemia. -Hold statins. -Low-cholesterol diet. 8. Obesity. -BMI 32 kg/m. 9. DVT prophylaxis. Subcutaneous heparin. 10. Plan.- -Continue IV fluids. -Continue pain control. -Await vascular surgery evaluation. The patient was seen in collaboration with Dr. Ruffin. Result Diagram: 01/23/19 0557 01/23/19 0557 Results 24hrs Laboratory Tests Test 01/22/19 17:41 01/22/19 21:04 01/23/19 01:57 01/23/19 05:57 Bedside Glucose 193 194 198 White Blood Count 9.7 Red Blood Count 4.54 Hemoglobin 12.5 Hematocrit 38.7 Mean Corpuscular 85.2 Volume Mean Corpuscular 27.5 L Hemoglobin Mean Corpuscular 32.3 Hemoglobin Concent Red Cell 13.4 Distribution Width Platelet Count 188 Mean Platelet Volume 11.6 H Immature 0.500 H Granulocytes % Neutrophils % 63.6 Lymphocytes % 25.1 Monocytes % 9.1 Eosinophils % 1.3 Basophils % 0.4 Nucleated Red Blood 0.0 Cells % Immature 0.050 H Granulocytes # Neutrophils # 6.2 Lymphocytes # 2.4 Monocytes # 0.9 Eosinophils # 0.1 Basophils # 0.0 Nucleated Red Blood 0.0 Cells # Sodium Level 137 Potassium Level 3.5 Chloride Level 99 Carbon Dioxide Level 31 Anion Gap 7 Blood Urea Nitrogen 11 Creatinine 0.62 Est Glomerular > 60 Filtrat Rate mL/min Glucose Level 186 Calcium Level 8.4 Phosphorus Level 2.6 Magnesium Level 1.8 Creatine Kinase Creatine Kinase 0.1 Index Creatinine Kinase MB 6.26 H (Mass) Troponin I 0.035 Test 01/23/19 07:55 01/23/19 12:06 Bedside Glucose 193 178 Exam/Review of Systems Exam Vitals Vital Signs Date Temp Pulse Resp B/P (MAP) Pulse Ox O2 O2 Flow FiO2 Time Delivery Rate 01/23/19 99.2 69 18 146/66 93 Room Air 15:16 (92) 01/21/19 2.0 13:14 Intake and Output 01/22/19 01/22/19 01/23/19 1515:00 23:00 07:00 IntakeIntake Total 645 ml 1195 ml 1120 ml BalanceBalance 645 ml 1195 ml 1120 ml Results Results 24hrs Laboratory Tests Test 01/22/19 17:41 01/22/19 21:04 01/23/19 01:57 01/23/19 05:57 Bedside Glucose 193 194 198 White Blood Count 9.7 Red Blood Count 4.54 Hemoglobin 12.5 Hematocrit 38.7 Mean Corpuscular 85.2 Volume Mean Corpuscular 27.5 L Hemoglobin Mean Corpuscular 32.3 Hemoglobin Concent Red Cell 13.4 Distribution Width Platelet Count 188 Mean Platelet Volume 11.6 H Immature 0.500 H Granulocytes % Neutrophils % 63.6 Lymphocytes % 25.1 Monocytes % 9.1 Eosinophils % 1.3 Basophils % 0.4 Nucleated Red Blood 0.0 Cells % Immature 0.050 H Granulocytes # Neutrophils # 6.2 Lymphocytes # 2.4 Monocytes # 0.9 Eosinophils # 0.1 Basophils # 0.0 Nucleated Red Blood 0.0 Cells # Sodium Level 137 Potassium Level 3.5 Chloride Level 99 Carbon Dioxide Level 31 Anion Gap 7 Blood Urea Nitrogen 11 Creatinine 0.62 Est Glomerular > 60 Filtrat Rate mL/min Glucose Level 186 Calcium Level 8.4 Phosphorus Level 2.6 Magnesium Level 1.8 Creatine Kinase Creatine Kinase 0.1 Index Creatinine Kinase MB 6.26 H (Mass) Troponin I 0.035 Test 01/23/19 07:55 01/23/19 12:06 Bedside Glucose 193 178 Medications Medication Current Medications Sodium Chloride 1,000 ml @ 125 mls/hr Q8H IV Last administered on 01/23/19at 05:43; Admin Dose 125 MLS/HR; Start 01/21/19 at 05:22 IV Flush (NS 3 ml) 3 ml PER PROTOCOL IV ; Start 01/21/19 at 05:30 Ondansetron HCl (Zofran Inj) 4 mg Q6H PRN IV NAUSEA/VOMITING Last administered on 01/21/19at 12:43; Admin Dose 4 MG; Start 01/21/19 at 05:30 Heparin Sodium (Porcine) (Heparin (5000 Units/1ml)) 5,000 unit Q12 SC Last administered on 01/23/19at 09:31; Admin Dose 5,000 UNIT; Start 01/21/19 at 09:00 Albuterol/ Ipratropium (Duoneb) 3 ml Q2H RESP THERAPY PRN HHN SHORTNESS OF BREATH; Start 01/21/19 at 05:30 Acetaminophen (Tylenol Tab) 650 mg Q6H PRN PO PAIN LEVEL 1-3 OR FEVER; Start 01/21/19 at 05:30 Amlodipine Besylate (Norvasc) 10 mg DAILY PO Last administered on 01/23/19 0 9:24; Admin Dose 10 MG; Start 01/21/19 at 09:00 Aspirin (Halfprin) 81 mg DAILY PO Last administered on 01/23/19 09:28; Admin Dose 81 MG; Start 01/21/19 at 09:00 Bisacodyl (Dulcolax Supp) 10 mg DAILY PRN [place] CONSTIPATION; Start 01/21/19 at 05:30 Carvedilol (Coreg) 3.125 mg BID PO Last administered on 01/23/19 09:29; Admin Dose 3.125 MG; Start 01/21/19 at 09:00 Collagenase (Santyl) 1 applic DAILY TOP Last administered on 01/23/19 09:30; Admin Dose 1 APPLIC; Start 01/21/19 at 09:00 Docusate Sodium (Colace) 200 mg BID PO Last administered on 01/22/19 21:01; Admin Dose 200 MG; Start 01/21/19 at 09:00 Ferrous Sulfate (Ferrous Sulfate (Ec)) 325 mg TID PO Last administered on 01/23/19 13:11; Admin Dose 325 MG; Start 01/21/19 at 09:00 Furosemide (Lasix) 40 mg DAILY PO Last administered on 01/23/19 09:28; Admin Dose 40 MG; Start 01/21/19 at 09:00 Insulin Glargine (Lantus) 10 units HS SC Last administered on 01/22/19 21:07; Admin Dose 10 UNITS; Start 01/21/19 at 21:00 Lactulose (Enulose) 20 gm Q6H PRN PO CONSTIPATION; Start 01/21/19 at 05:30 Lisinopril (Zestril) 10 mg DAILY PO Last administered on 01/23/19 09:26; Admin Dose 10 MG; Start 01/21/19 at 09:00 Pantoprazole (Protonix Tab) 40 mg DAILY@06 PO Last administered on 01/23/19 06:18; Admin Dose 40 MG; Start 01/21/19 at 06:00 Polyethylene Glycol (Miralax) 17 gm DAILY PO Last administered on 01/21/19 09:08; Admin Dose 17 GM; Start 01/21/19 at 09:00 Senna/Docusate Sodium (Senokot-S) 2 tab BID PO Last administered on 01/22/19at 21:09; Admin Dose 2 TAB; Start 01/21/19 at 09:00 Zolpidem Tartrate (Ambien) 5 mg HS PRN PO INSOMNIA; Start 01/21/19 at 05:30 Miscellaneous Information (Pending Santyl Order For Wound Care) This patient minor... PRN PRN XX WOUND CARE; Start 01/21/19 at 07:00 Diagnostic Test (Pha) (Accu-Chek) 1 ea 02 XX ; Start 01/23/19 at 02:00 Insulin Aspart (Novolog Insulin Pen) NOVOLOG *MILD* ALGORITHM WITH MEALS BEDTIME SC Last administered on 01/23/19at 12:12; Admin Dose 1 UNIT; Start 01/22/19 at 08:00 Miscellaneous Information 1 ea NOTE XX ; Start 01/22/19 at 03:00 Glucose (Glutose) 15 gm Q15M PRN PO DECREASED GLUCOSE; Start 01/22/19 at 03:00 Glucose (Glutose) 22.5 gm Q15M PRN PO DECREASED GLUCOSE; Start 01/22/19 at 03:00 Dextrose (D50w Syringe) 25 ml Q15M PRN IV DECREASED GLUCOSE; Start 01/22/19 at 03:00 Dextrose (D50w Syringe) 50 ml Q15M PRN IV DECREASED GLUCOSE; Start 01/22/19 at 03:00 Glucagon (Glucagen) 1 mg Q15M PRN IM DECREASED GLUCOSE; Start 01/22/19 at 03:00 Glucose (Glutose) 15 gm Q15M PRN BUCCAL DECREASED GLUCOSE; Start 01/22/19 at 03:00 Morphine Sulfate (morphine) 2 mg Q3H PRN IV SEVERE PAIN LEVEL 7-10 Last administered on 01/23/19at 11:59; Admin Dose 2 MG; Start 01/23/19 at 00:00; Stop 01/24/19 at 09:00 Gabapentin (Neurontin) 300 mg BID PO ; Start 01/23/19 at 21:00 Gabapentin (Neurontin) 600 mg BEFORE LUNCH PO ; Start 01/24/19 at 11:30 Morphine Sulfate (Ms Contin (Er)) 15 mg BID PO Last administered on 01/23/19at 13:26; Admin Dose 15 MG; Start 01/23/19 at 13:00 Nitroglycerin (Nitroglycerin 2% Oint) 0.5 inch DAILY TD Last administered on 01/23/19at 13:27; Admin Dose 0.5 INCH; Start 01/23/19 at 13:00 KODY OROZCO NP Jan 23, 2019 15:29
--- NOTE | 2019-01-23 17:11 | CONS ---
Assessment/Plan Assessment/Plan Assessment/Plan (Daily) 63-year-old female with hypertension, diabetes mellitus, severe peripheral vascular disease s/p RLE BKA and LLE AKA, CAD s/p CABG, diabetic neuropathy, dyslipidemia, and chronic pain now presented to hospital for RLE pain, found to be in rhabdomyolysis; but pain is localized to R anterior knee w/ significant edema along w/ area at distal R lateral thigh; her RLE BKA stump is warm, non- cyanotic, no wounds, no pain - no overt signs of significant arterial insufficiency Plan: -Appreciate medical management -Recommend further imaging studies for RLE knee/lateral thigh pain/edema -No acute vascular intervention currently indicated -D/w Josh Pineda NP Consultation Date/Type/Reason Admit Date/Time Jan 20, 2019 at 23:08 Date of Consultation: Jan 23, 2019 Reason for Consultation RLE pain, rhabdomyolysis Requesting Provider: JOSH PINEDA NP Date/Time of Note DATE: 01/23/19 TIME: 17:11 Hx of Present Illness 63-year-old female with hypertension, diabetes mellitus, severe peripheral vascular disease s/p RLE BKA and LLE AKA, CAD s/p CABG, diabetic neuropathy, dyslipidemia, and chronic pain now presented to hospital for RLE pain. Evaluation showed markedly elevated CK and pt was diagnosed w/ rhabdomyolysis. She currently describes pain/swelling localized to R anterior knee and lateral distal thigh that has been present for past few days. She denies h/o trauma to the sites. She denies any pain or swelling at R BKA stump/calf or at L AKA. T he patient denies fevers or chills, chest pain, SOB, nausea, vomiting, abdominal pain, or diarrhea. She has chronic incontinence of urine. BLE art u/s was done and showed severe arterial disease bilaterally, results d/w pt -- however, this is expected given her BLE amputations but does not explain her localized symptoms. 12-point ROS done, negative except for HPI Past Medical History 1. Hypertension. 2. Type 2 diabetes mellitus 3. Peripheral vascular disease. 4. CAD, status post CABG. 5. Diabetic neuropathy 6. Dyslipidemia. 7. Chronic pain. 8. Obesity. Home Meds Active Scripts Tramadol HCl (Tramadol HCl) 50 Mg Tablet, 50 MG PO Q6 PRN for PAIN, #7 TAB Prov:DANIEL BRENNAN 05/05/16 Tramadol HCl (Tramadol HCl) 50 Mg Tablet, 50 MG PO Q6 PRN for PAIN, #8 TAB Prov:DANIEL BRENNAN 05/05/16 Methadone Hcl* (Methadone*) 5 Mg/5 Ml Solution, 2 MG PO Q6 for 14 Days Prov:BRANDO CARTER 03/28/16 Sennosides/Docusate Sodium (Senna-Time S Tablet) 1 Udtab Tablet, 2 TAB PO BID for 30 Days, TAB Prov:BRANDO CARTER 03/28/16 Polyethylene Glycol* (Miralax*) 17 Gm Powd.pack, 17 GM PO DAILY for 30 Days Prov:BRANDO CARTER 03/28/16 Collagenase* (Santyl*) 30 Gm Oint..gm., 1 APPLIC TOP DAILY for 30 Days Prov:BRANDO CARTER 03/28/16 Pantoprazole* (Pantoprazole*) 40 Mg Tabec, 40 MG PO DAILY@06 for 30 Days Prov:REHANA GOLD V. BARREL STRAIGHTENER 01/29/16 Ondansetron Hcl* (Zofran*) 2 Mg/Ml Soln, 4 MG IV Q4H PRN for NAUSEA AND/OR VOMITING for 30 Days Prov:REHANA GOLD V. BARREL STRAIGHTENER 01/29/16 Insulin Aspart* (Novolog Insulin Pen*) 100 Unit/Ml Soln, 0 UNIT SC WITH MEALS BEDTIME for 30 Days Prov:ASIFREHANA V. BARREL STRAIGHTENER 01/29/16 Heparin Sodium,Porcine/Pf (Heparin Na 5,000 Units/0.5 Ml) 5,000 Unit/0.5 Ml Soln, 5000 UNIT SC Q12 for 30 Days Prov:GOLDREHANA V. BARREL STRAIGHTENER 01/29/16 Gabapentin* (Neurontin*) 300 Mg Cap, 300 MG PO TID for 30 Days, CAP Prov:OMKAR GOLDA V. BARREL STRAIGHTENER 01/29/16 Glucagon* (Glucagen*) 1 Mg Soln, 1 MG IM Q15M PRN for DECREASED GLUCOSE for 30 Days Prov:GOLDREHANA V. BARREL STRAIGHTENER 01/29/16 Bisacodyl* (Bisacodyl*) 10 Mg Supp, 10 MG NM DAILY PRN for CONSTIPATION for 30 Days, SUPP Prov:GOLD,REHANA V. BARREL STRAIGHTENER 01/29/16 Acetaminophen* (Tylenol*) 325 Mg Tab, 650 MG PO Q6H PRN for PAIN LEVEL 1-3 OR FEVER for 30 Days, TAB Prov:REHANA GOLD NP 01/29/16 Zolpidem Tartrate (Ambien Larry) 5 Mg Tab, 5 MG PO HS PRN for INSOMNIA for 30 Days, TAB Prov:REHANA GOLD V. BARREL STRAIGHTENER 01/28/16 Insulin Glargine* (Lantus*) 100 Unit/Ml Soln, 10 UNIT SC HS for 30 Days Prov:REHANA GOLD V. BARREL STRAIGHTENER 01/28/16 Furosemide* (Lasix*) 20 Mg Tab, 40 MG PO DAILY for 30 Days, TAB Prov:REHANA GOLD NP 01/28/16 Ferrous Sulfate* (Ferrous Sulfate*) 325 Mg Tabec, 325 MG PO TID for 30 Days, TAB Prov:REHANA GOLD NP 01/28/16 Cholecalciferol* (Vitamin D3*) 2,000 Unit Cap, 2000 UNIT PO DAILY for 30 Days, CAP Prov:REHANA GOLD V. BARREL STRAIGHTENER 01/28/16 Carvedilol* (Coreg*) 3.125 Mg Tab, 3.125 MG PO BID for 30 Days, TAB Prov:REHANA GOLD NP 01/28/16 Atorvastatin Calcium* (Atorvastatin Calcium*) 20 Mg Tab, 80 MG PO HS for 30 Days, TAB Prov:REHANA GOLD NP 01/28/16 Aspirin* (Aspirin* EC) 81 Mg Tabec, 81 MG PO DAILY for 30 Days Prov:REHANA GOLD NP 01/28/16 Amlodipine Besylate* (Norvasc*) 10 Mg Tab, 10 MG PO DAILY for 30 Days, TAB Prov:REHANA GOLD V. BARREL STRAIGHTENER 01/28/16 Reported Medications Gabapentin (GABAPENTIN) 300 Mg/6 Ml Solution, 300 MG PO TID 01/21/19 Omeprazole* (Omeprazole*) 20 Mg Capsule.dr, 20 MG PO DAILY, #30 CAP 01/21/19 Atorvastatin* (Atorvastatin*) 80 Mg Tablet, 80 MG PO QHS, #30 TAB 01/21/19 Carvedilol* (Carvedilol*) 3.125 Mg Tablet, 3.125 MG PO BID, #60 TAB 01/21/19 Aspirin* (Aspirin* (EC)) 81 Mg Tablet.dr, 81 MG PO DAILY, TAB 01/21/19 Lisinopril* (Lisinopril*) 10 Mg Tablet, 10 MG PO DAILY, #30 TAB 01/21/19 Docusate Sodium* (Colace*) 100 Mg Capsule, 200 MG PO BID, #60 CAP 01/21/19 Amlodipine Besylate* (Amlodipine Besylate*) 10 Mg Tablet, 10 MG PO DAILY, #30 TAB 01/21/19 Sitagliptin* (Januvia*) 100 Mg Tablet, 100 MG PO BID, #30 TAB 01/21/19 Lactulose* (Lactulose*) 20 Gm/30 Ml Solution, 20 GM PO Q6H PRN for CONSTIPATION, ML 16 Medications Current Medications Sodium Chloride 1,000 ml @ 125 mls/hr Q8H IV Last administered on 01/23/19at 05:43; Admin Dose 125 MLS/HR; Start 01/21/19 at 05:22 IV Flush (NS 3 ml) 3 ml PER PROTOCOL IV ; Start 01/21/19 at 05:30 Ondansetron HCl (Zofran Inj) 4 mg Q6H PRN IV NAUSEA/VOMITING Last administered on 01/21/19at 12:43; Admin Dose 4 MG; Start 01/21/19 at 05:30 Heparin Sodium (Porcine) (Heparin (5000 Units/1ml)) 5,000 unit Q12 SC Last administered on 01/23/19at 09:31; Admin Dose 5,000 UNIT; Start 01/21/19 at 09:00 Albuterol/ Ipratropium (Duoneb) 3 ml Q2H RESP THERAPY PRN HHN SHORTNESS OF BREATH; Start 01/21/19 at 05:30 Acetaminophen (Tylenol Tab) 650 mg Q6H PRN PO PAIN LEVEL 1-3 OR FEVER; Start 01/21/19 at 05:30 Amlodipine Besylate (Norvasc) 10 mg DAILY PO Last administered on 01/23/19at 09:24; Admin Dose 10 MG; Start 01/21/19 at 09:00 Aspirin (Halfprin) 81 mg DAILY PO Last administered on 01/23/19 09:28; Admin D ose 81 MG; Start 01/21/19 at 09:00 Bisacodyl (Dulcolax Supp) 10 mg DAILY PRN NM CONSTIPATION; Start 01/21/19 at 05:30 Carvedilol (Coreg) 3.125 mg BID PO Last administered on 01/23/19 09:29; Admin Dose 3.125 MG; Start 01/21/19 at 09:00 Collagenase (Santyl) 1 applic DAILY TOP Last administered on 01/23/19 09:30; Admin Dose 1 APPLIC; Start 01/21/19 at 09:00 Docusate Sodium (Colace) 200 mg BID PO Last administered on 01/22/19 21:01; Admin Dose 200 MG; Start 01/21/19 at 09:00 Ferrous Sulfate (Ferrous Sulfate (Ec)) 325 mg TID PO Last administered on 01/23/19 13:11; Admin Dose 325 MG; Start 01/21/19 at 09:00 Furosemide (Lasix) 40 mg DAILY PO Last administered on 01/23/19 09:28; Admin Dose 40 MG; Start 01/21/19 at 09:00 Insulin Glargine (Lantus) 10 units HS SC Last administered on 01/22/19 21:07; Admin Dose 10 UNITS; Start 01/21/19 at 21:00 Lactulose (Enulose) 20 gm Q6H PRN PO CONSTIPATION; Start 01/21/19 at 05:30 Lisinopril (Zestril) 10 mg DAILY PO Last administered on 01/23/19 09:26; Admin Dose 10 MG; Start 01/21/19 at 09:00 Pantoprazole (Protonix Tab) 40 mg DAILY@06 PO Last administered on 01/23/19 06:18; Admin Dose 40 MG; Start 01/21/19 at 06:00 Polyethylene Glycol (Miralax) 17 gm DAILY PO Last administered on 01/21/19 09:08; Admin Dose 17 GM; Start 01/21/19 at 09:00 Senna/Docusate Sodium (Senokot-S) 2 tab BID PO Last administered on 01/22/19 21:09; Admin Dose 2 TAB; Start 01/21/19 at 09:00 Zolpidem Tartrate (Ambien) 5 mg HS PRN PO INSOMNIA; Start 01/21/19 at 05:30 Miscellaneous Information (Pending [facility] Order For Wound Care) This patient minor... PRN PRN XX WOUND CARE; Start 01/21/19 at 07:00 Diagnostic Test (Pha) (Accu-Chek) 1 ea 02 XX ; Start 01/23/19 at 02:00 Insulin Aspart (Novolog Insulin Pen) NOVOLOG *MILD* ALGORITHM WITH MEALS BEDTIME SC Last administered on 01/23/19at 12:12; Admin Dose 1 UNIT; Start 01/22/19 at 08:00 Miscellaneous Information 1 ea NOTE XX ; Start 01/22/19 at 03:00 Glucose (Glutose) 15 gm Q15M PRN PO DECREASED GLUCOSE; Start 01/22/19 at 03:00 Glucose (Glutose) 22.5 gm Q15M PRN PO DECREASED GLUCOSE; Start 01/22/19 at 0 3:00 Dextrose (D50w Syringe) 25 ml Q15M PRN IV DECREASED GLUCOSE; Start 01/22/19 at 03:00 Dextrose (D50w Syringe) 50 ml Q15M PRN IV DECREASED GLUCOSE; Start 01/22/19 at 03:00 Glucagon (Glucagen) 1 mg Q15M PRN IM DECREASED GLUCOSE; Start 01/22/19 at 03:00 Glucose (Glutose) 15 gm Q15M PRN BUCCAL DECREASED GLUCOSE; Start 01/22/19 at 03:00 Morphine Sulfate (morphine) 2 mg Q3H PRN IV SEVERE PAIN LEVEL 7-10 Last administered on 01/23/19at 15:31; Admin Dose 2 MG; Start 01/23/19 at 00:00; Stop 01/24/19 at 09:00 Gabapentin (Neurontin) 300 mg BID PO ; Start 01/23/19 at 21:00 Gabapentin (Neurontin) 600 mg BEFORE LUNCH PO ; Start 01/24/19 at 11:30 Morphine Sulfate (Ms Contin (Er)) 15 mg BID PO Last administered on 01/23/19at 13:26; Admin Dose 15 MG; Start 01/23/19 at 13:00 Nitroglycerin (Nitroglycerin 2% Oint) 0.5 inch DAILY TD Last administered on 01/23/19at 13:27; Admin Dose 0.5 INCH; Start 01/23/19 at 13:00 Polyethylene Glycol (Miralax) 17 gm BID PO ; Start 01/23/19 at 21:00 Allergies: Coded Allergies: Penicillins (Verified Allergy, Intermediate, RASH, 03/20/16) Past Surgical History CABG BLE amputations - R BKA, L AKA Past Surgical Hx: other Social History Alcohol Use: none Smoking Status: Never smoker Drug Use: none Exam/Review of Systems Exam Vitals Vital Signs Date Temp Pulse Resp B/P (MAP) Pulse Ox O2 O2 Flow FiO2 Time Delivery Rate 01/23/19 99.2 69 18 146/66 93 Room Air 15:16 (92) 01/21/19 2.0 13:14 Intake and Output 01/22/19 01/22/19 01/23/19 1414:59 22:59 06:59 IntakeIntake Total 645 ml 1195 ml 1120 ml BalanceBalance 645 ml 1195 ml 1120 ml Exam Gen: AAOx3, NAD Neck: supple Heart: Reg Lungs: clear ant Abd: obese, soft, NT, ND Extr: RLE BKA - calf stump warm, no cyanosis, no edema, no wounds, no tenderness. R anterior knee w/ marked edema and tenderness to palpation. There is also small area at R lateral distal thigh w/ firmness and edema and tenderness to palpation. No wounds. LLE AKA warm, no cyanosis, no edema, no tenderness Results Result Diagram: 01/23/19 0557 01/23/19 0557 Results 24hrs Laboratory Tests Test 01/22/19 17:41 01/22/19 21:04 01/23/19 01:57 01/23/19 05:57 Bedside Glucose 193 194 198 White Blood Count 9.7 Red Blood Count 4.54 Hemoglobin 12.5 Hematocrit 38.7 Mean Corpuscular 85.2 Volume Mean Corpuscular 27.5 L Hemoglobin Mean Corpuscular 32.3 Hemoglobin Concen t Red Cell 13.4 Distribution Width Platelet Count 188 Mean Platelet 11.6 H Volume Immature 0.500 H Granulocytes % Neutrophils % 63.6 Lymphocytes % 25.1 Monocytes % 9.1 Eosinophils % 1.3 Basophils % 0.4 Nucleated Red 0.0 Blood Cells % Immature 0.050 H Granulocytes # Neutrophils # 6.2 Lymphocytes # 2.4 Monocytes # 0.9 Eosinophils # 0.1 Basophils # 0.0 Nucleated Red 0.0 Blood Cells # Sodium Level 137 Potassium Level 3.5 Chloride Level 99 Carbon Dioxide 31 Level Anion Gap 7 Blood Urea 11 Nitrogen Creatinine 0.62 Est Glomerular > 60 Filtrat Rate mL/min Glucose Level 186 Calcium Level 8.4 Phosphorus Level 2.6 Magnesium Level 1.8 Creatine Kinase Creatine Kinase 0.1 Index Creatinine Kinase 6.26 H MB (Mass) Troponin I 0.035 Test 01/23/19 07:55 01/23/19 12:06 01/23/19 16:15 Bedside Glucose 193 178 Urine Color STRAW Urine Clarity SLIGHTLY CLOUDY A Urine pH 5.0 Urine Specific 1.008 [place] Urine Ketones TRACE A Urine Nitrite NEGATIVE Urine Bilirubin NEGATIVE Urine NEGATIVE Urobilinogen Urine Leukocyte 3+ H Esterase Urine Microscopic 7 H RBC Urine Microscopic 15 H WBC Urine Bacteria MODERATE Urine Hemoglobin 2+ H Urine Glucose 2+ H Urine Total NEGATIVE Protein Medications Medication Current Medications Sodium Chloride 1,000 ml @ 125 mls/hr Q8H IV Last administered on 01/23/19at 05:43; Admin Dose 125 MLS/HR; Start 01/21/19 at 05:22 IV Flush (NS 3 ml) 3 ml PER PROTOCOL IV ; Start 01/21/19 at 05:30 Ondansetron HCl (Zofran Inj) 4 mg Q6H PRN IV NAUSEA/VOMITING Last administered on 01/21/19at 12:43; Admin Dose 4 MG; Start 01/21/19 at 05:30 Heparin Sodium (Porcine) (Heparin (5000 Units/1ml)) 5,000 unit Q12 SC Last administered on 01/23/19at 09:31; Admin Dose 5,000 UNIT; Start 01/21/19 at 09:00 Albuterol/ Ipratropium (Duoneb) 3 ml Q2H RESP THERAPY PRN HHN SHORTNESS OF BREATH; Start 01/21/19 at 05:30 Acetaminophen (Tylenol Tab) 650 mg Q6H PRN PO PAIN LEVEL 1-3 OR FEVER; Start 01/21/19 at 05:30 Amlodipine Besylate (Norvasc) 10 mg DAILY PO Last administered on 01/23/19at 09:24; Admin Dose 10 MG; Start 01/21/19 at 09:00 Aspirin (Halfprin) 81 mg DAILY PO Last administered on 01/23/19at 09:28; Admin Dose 81 MG; Start 01/21/19 at 09:00 Bisacodyl (Dulcolax Supp) 10 mg DAILY PRN NM CONSTIPATION; Start 01/21/19 at 05:30 Carvedilol (Coreg) 3.125 mg BID PO Last administered on 01/23/19 09:29; Admin Dose 3.125 MG; Start 01/21/19 at 09:00 Collagenase (Santyl) 1 applic DAILY TOP Last administered on 01/23/19 09:30; Admin Dose 1 APPLIC; Start 01/21/19 at 09:00 Docusate Sodium (Colace) 200 mg BID PO Last administered on 01/22/19 21:01; Admin Dose 200 MG; Start 01/21/19 at 09:00 Ferrous Sulfate (Ferrous Sulfate (Ec)) 325 mg TID PO Last administered on 01/07 13:11; Admin Dose 325 MG; Start 01/21/19 at 09:00 Furosemide (Lasix) 40 mg DAILY PO Last administered on 01/23/19 09:28; Admin Dose 40 MG; Start 01/21/19 at 09:00 Insulin Glargine (Lantus) 10 units HS SC Last administered on 01/22/19 21:07; Admin Dose 10 UNITS; Start 01/21/19 at 21:00 Lactulose (Enulose) 20 gm Q6H PRN PO CONSTIPATION; Start 01/21/19 at 05:30 Lisinopril (Zestril) 10 mg DAILY PO Last administered on 01/23/19 09:26; Admin Dose 10 MG; Start 01/21/19 at 09:00 Pantoprazole (Protonix Tab) 40 mg DAILY@06 PO Last administered on 01/23/19 06:18; Admin Dose 40 MG; Start 01/21/19 at 06:00 Polyethylene Glycol (Miralax) 17 gm DAILY PO Last administered on 01/21/19 09:08; Admin Dose 17 GM; Start 01/21/19 at 09:00 Senna/Docusate Sodium (Senokot-S) 2 tab BID PO Last administered on 01/22/19 21:09; Admin Dose 2 TAB; Start 01/21/19 at 09:00 Zolpidem Tartrate (Ambien) 5 mg HS PRN PO INSOMNIA; Start 01/21/19 at 05:30 Miscellaneous Information ([facility]) This patient minor... PRN PRN XX WOUND CARE; Start 01/21/19 at 07:00 Diagnostic Test (Pha) (Accu-Chek) 1 ea 02 XX ; Start 01/23/19 at 02:00 Insulin Aspart (Novolog Insulin Pen) NOVOLOG *MILD* ALGORITHM WITH MEALS BEDTIME SC Last administered on 01/23/19at 12:12; Admin Dose 1 UNIT; Start 01/22/19 at 08:00 Miscellaneous Information 1 ea NOTE XX ; Start 01/22/19 at 03:00 Glucose (Glutose) 15 gm Q15M PRN PO DECREASED GLUCOSE; Start 01/22/19 at 03:00 Glucose (Glutose) 22.5 gm Q15M PRN PO DECREASED GLUCOSE; Start 01/22/19 at 03:00 Dextrose (D50w Syringe) 25 ml Q15M PRN IV DECREASED GLUCOSE; Start 01/22/19 at 03:00 Dextrose (D50w Syringe) 50 ml Q15M PRN IV DECREASED GLUCOSE; Start 01/22/19 at 03:00 Glucagon (Glucagen) 1 mg Q15M PRN IM DECREASED GLUCOSE; Start 01/22/19 at 03:00 Glucose (Glutose) 15 gm Q15M PRN BUCCAL DECREASED GLUCOSE; Start 01/22/19 at 03:00 Morphine Sulfate (morphine) 2 mg Q3H PRN IV SEVERE PAIN LEVEL 7-10 Last administered on 01/23/19at 15:31; Admin Dose 2 MG; Start 01/23/19 at 00:00; Stop 01/24/19 at 09:00 Gabapentin (Neurontin) 300 mg BID PO ; Start 01/23/19 at 21:00 Gabapentin (Neurontin) 600 mg BEFORE LUNCH PO ; Start 01/24/19 at 11:30 Morphine Sulfate (Ms Contin (Er)) 15 mg BID PO Last administered on 01/23/19at 13:26; Admin Dose 15 MG; Start 01/23/19 at 13:00 Nitroglycerin (Nitroglycerin 2% Oint) 0.5 inch DAILY TD Last administered on 01/23/19at 13:27; Admin Dose 0.5 INCH; Start 01/23/19 at 13:00 Polyethylene Glycol (Miralax) 17 gm BID PO ; Start 4/17/19 at 21:00 SAMIA JOHNSTON MD Jan 23, 2019 17:11
--- NOTE | 2019-01-23 18:32 | CONS ---
DATE OF ADMISSION: 01/20/2019 DATE OF CONSULTATION: 01/23/2019 TYPE OF CONSULTATION: Nephrology. REASON FOR CONSULTATION: Rhabdomyolysis. PROVIDER REQUESTING CONSULT: Josh Pineda NP HISTORY OF PRESENT ILLNESS: This is a 63-year-old female with a past medical history of hypertension , history of diabetes, history of peripheral vascular disease, history of coronary artery disease, st atus post CABG, history of bilateral below-knee amputation, history of dyslipidemia, chronic pain syn drome, who presents to [facility] Emergency Room with complaints of lower extremity pain. T he patient states that she was in her normal state of health until Monday when she started developi ng severe right lower extremity pain. The patient denied any change in medication use. The patient denied any trauma. The patient as a result came into the emergency room. Upon arrival, the patient was noted to have an elevated CK level of approximately 1000. The patient was started on IV fluids a nd was admitted to [facility]-surg. PAST MEDICAL HISTORY: History of coronary artery disease, diabetes, hypertension, peripheral vascula r disease, diabetic nephropathy, dyslipidemia, obesity. PAST SURGICAL HISTORY: Status post CABG, status post bilateral below-knee amputation. FAMILY HISTORY: No family history of kidney disease. SOCIAL HISTORY: Does not drink, smoke or do drugs. MEDICATIONS: Have been reviewed. REVIEW OF SYSTEMS: A 14-point review of systems conducted. Pertinent positives stated in HPI, other olsen negative. PHYSICAL EXAMINATION: VITAL SIGNS: Blood pressure is 153/69, respiration 18, pulse 69, temperature 98.3. HEENT: Head is normocephalic. NECK: Supple. HEART: Regular rate. LUNGS: Show diminished breath sounds at base. ABDOMEN: Soft, nontender to palpation without rebound or guarding. EXTREMITIES: Negative for clubbing, cyanosis. Positive tenderness to palpation in bilateral thighs, noted . NEUROLOGIC: No focal deficits. LABORATORY DATA: Have been reviewed. CK levels were reviewed. IMAGING STUDIES: Showed bilateral-knee amputation, occluded right mid superficial femoral artery. ASSESSMENT AND PLAN: This is a 63-year-old female who presents with: 1. Rhabdomyolysis. Etiology is concerning for ischemic leg. The patient's arterial ultrasound show s occlusion of right superficial femoral artery. Recommendation is to continue the patient on aggres sive IV hydration. We would recommend CT angio and possible initiation of heparin drip and getting a vascular surgery evaluation. We would continue to monitor CK levels closely. We will monitor renal function closely. 2. Peripheral arterial disease with possible right femoral artery occlusion. As stated above, rica nue current medical management, pain control. Consider CT angio and heparin drip. Vascular surgery evaluation. 3. Diabetes. Continue current insulin regimen. 4. Hypertension. Continue current blood pressure regimen. 5. Neuropathy. Continue Neurontin. 6. Dyslipidemia. 7. Obesity. 8. Gastrointestinal and deep venous thrombosis prophylaxis. Thank you, Josh, for this interesting consult. It will be a pleasure to follow the patient with yo u throughout the hospital course. Dictated By: RYAN GILLIS DO NR/NTS Conf#: [id number] DID#: [id number] CC: SVITLANA MODI MD; SAMIA Buckley;*End*
[2019-01-23 20:27] VITALS: BP 154/66; PULSE 69; RESP 18
[2019-01-23] MEDS: INSULIN GLARGINE [LANTus] (100 UNITS/ML) SYG SC SCH (21:12)
[2019-01-24] MEDS: ACCU-CHEK XX SCH (01:56)
[2019-01-24] MEDS: SOD CHLORIDE 0.9% 1,000 ML IV SCH ×3 (01:56→20:39)
[2019-01-24 02:02] VITALS: BP 141/63; PULSE 68; RESP 17
[2019-01-24] MEDS: PANTOPRAZOLE (EC) 40 MG TAB PO SCH (05:29)
[2019-01-24] MEDS: morphine 2 MG INJ IV PRN (05:29)
[2019-01-24 08:00] VITALS: BP 161/68; PULSE 67; RESP 20
[2019-01-24] MEDS: INSULIN ASPART [NOVOLOG] 3 ML PEN SC SCH ×4 (08:27→20:36)
[2019-01-24] MEDS: HEPARIN 5,000 UNIT/1 ML VIAL SC SCH ×2 (08:28→20:38)
[2019-01-24] MEDS: ASPIRIN (EC) 81 MG TAB PO SCH (08:30)
[2019-01-24] MEDS: morphine (ER) 15 MG TAB PO SCH ×2 (08:30→20:33)
[2019-01-24] MEDS: FERROUS SULFATE (EC) 325 MG TAB PO SCH ×3 (08:30→20:33)
[2019-01-24] MEDS: DOCUSATE SODIUM 100 MG CAP PO SCH ×2 (08:31→20:33)
[2019-01-24] MEDS: SENNA/DOCUSATE NA (8.6MG/50MG) TAB PO SCH ×2 (08:32→20:33)
[2019-01-24] MEDS: FUROSEMIDE 40 MG TAB PO SCH (08:32)
[2019-01-24] MEDS: AMLODIPINE 10 MG TAB PO SCH (08:33)
[2019-01-24] MEDS: LISINOPRIL 10 MG TAB PO SCH (08:33)
[2019-01-24] MEDS: NITROGLYCERIN 2% 1 GM OINT PKT TD SCH (08:35)
[2019-01-24] MEDS: COLLAGENASE 5 GM (UD JAR) TOP SCH (08:37)
[2019-01-24] MEDS: GABAPENTIN 300 MG CAP PO SCH ×4 (08:39→20:34)
[2019-01-24] MEDS: POLYETHYLENE GLYCOL 17 GM PACKET PO SCH ×3 (09:00→20:34)
[2019-01-24] MEDS ORDERED: POTASSIUM CHLORIDE (SR) 20 MEQ TAB PO STA (09:14)
--- NOTE | 2019-01-24 09:47 | PN ---
DATE: 01/24/2019 SUBJECTIVE: The patient continues to have pain in lower extremities. No hemoptysis, hematemesis or hematochezia. OBJECTIVE: VITAL SIGNS: Blood pressure is 161/68, respirations 20, pulse 61, temperature 98.8. HEENT: Head is normocephalic. NECK: Supple. HEART: Regular rate. LUNGS: Show diminished breath sounds at the base. ABDOMEN: Soft, nontender to palpation. No rebound or guarding. EXTREMITIES: Positive for bilateral BKA with positive tenderness to palpation and swelling of the ri ght leg. DERMATOLOGIC: No rashes. MUSCULOSKELETAL: No joint effusion. NEUROLOGIC: No change in exam. MEDICATIONS: The patient's medications have been reviewed. LABORATORY DATA: Shows sodium 137, potassium 3.2, BUN 10, creatinine 0.62. CK level of 6000, white count 9.5, hemoglobin 12.2, platelet count 200. IMAGING STUDIES: Reviewed. ASSESSMENT AND PLAN: 1. Rhabdomyolysis. Etiology is unclear. Questionable ischemic leg. Questionable medication induce d. The patient's arterial ultrasound shows occlusion of right superficial femoral artery. Unclear i f this is acute or chronic. We will consider CT angiogram for further evaluation. Continue aggressi ve IV hydration. Continue to monitor CK levels. Monitor closely. 2. Hypokalemia. We will replete with potassium chloride. 3. Peripheral arterial disease with possible right femoral arterial occlusion with ischemia. Contin ue medical management. Consider a vascular surgery evaluation, consider CT angiogram. 4. Diabetes. Continue current insulin regimen. 5. Hypertension. Continue current blood pressure regimen. 6. Neuropathy. Continue Neurontin. 7. Dyslipidemia. Continue statin therapy. 8. Obesity. 9. Gastrointestinal and deep vein thrombosis prophylaxis. Dictated By: RYAN GILLIS DO NR/NTS Conf#: [id number] DID#: [id number] CC: SAMIA Buckley; SVITLANA MODI MD;*EndCC*
--- NOTE | 2019-01-24 13:31 | PN ---
Date/Time of Note Date/Time of Note DATE: 01/24/19 TIME: 13:28 Assessment/Plan VTE Prophylaxis Risk score (from Nsg)>0 risk: 6 SCD applied (from Ns): No SCD contraindicated: bilateral amputee Pharmacological prophylaxis: heparin Lines/Catheters IV Catheter Type (from Nrsg): Peripheral IV Urinary Cath still in place: No Assessment/Plan Hospital Course SUBJECTIVE: Continues to complain of right lower extremity pain. OBJECTIVE: Physical Exam General: Obese,63 year-old female lying in bed in no apparent distress. HEENT: Normocephalic, atraumatic. Eyes: Anicteric sclerae, conjunctivae clear. ENT: Nasal septum midline, oral mucosa moist. Neck supple, no JVD noticed. Respiratory: Bilaterally clear breath sounds. No use of accessory muscles of respiration. No adventitious breath sounds. Cardiovascular: S1, S2 heard. Regular rate and rhythm. Abdomen: Soft, nontender, and nondistended. Bowel sounds positive in all 4 quadrants. Genitourinary: Deferred. Extremities: Below-knee amputation on the right. Above-knee amputation on the left. Neurologic: Cranial nerves II through XII grossly intact. The patient is awake, alert, and oriented. Labs & Vitals per chart ASSESSMENT & PLAN 63-year-old female with comorbidities including hypertension, diabetes mellitus, CAD status post CABG, peripheral vascular disease, diabetic neuropathy, dyslipidemia, chronic pain, and obesity who was transferred from an outside [facility] for further evaluation of right lower extremity pain and underlying rhabdomyolysis, who was admitted to inpatient setting for further treatment and evaluation. 1. Rhabdomyolysis. -Etiology unclear. -Continue IV hydration. -Hold statins. -Monitor renal function closely. -Nephrology following. 2. Right lower extremity pain. -Imaging studies from the transferring facility negative. -Continue pain control. -Continue gabapentin. 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 -The patient does not have any evidence of acute ischemia as per vascular surgery. 3. Diabetes mellitus type 2. -Hemoglobin A1c 13.1. -Continue sliding scale insulin along with pre-meal insulin and basal insulin. 4. Hypertension. -Continue antihypertensives. 5. Diabetic neuropathy. -Continue gabapentin. 6. CAD, status post CABG. -Continue aspirin. 7. Dyslipidemia. -Hold statins. -Low-cholesterol diet. 8. Obesity. -BMI 32 kg/m. 9. DVT prophylaxis. Subcutaneous heparin. 10. Plan. -Continue IV fluids. -Continue pain control. -Antibiotic therapy to cover any infectious process that is causing the rhabdomyolysis. -Obtain right lower extremity MRI. Case discussed with vascular surgery and nephrology. The patient was seen in collaboration with Dr. Ruffin. Result Diagram: 01/24/19 0533 01/24/19 0533 Results 24hrs Laboratory Tests Test 01/23/19 16:15 01/23/19 17:34 01/23/19 20:59 01/24/19 01:49 Urine Color STRAW Urine Clarity SLIGHTLY CLOUDY A Urine pH 5.0 Urine Specific 1.008 [place] Urine Ketones TRACE A Urine Nitrite NEGATIVE Urine Bilirubin NEGATIVE Urine NEGATIVE Urobilinogen Urine Leukocyte 3+ H Esterase Urine Microscopic 7 H RBC Urine Microscopic 15 H WBC Urine Bacteria MODERATE Urine Hemoglobin 2+ H Urine Random 22.05 Creatinine Urine Random 144 H Sodium Urine Glucose 2+ H Urine Total 13.0 H Protein Bedside Glucose 201 241 H 176 Test 01/24/19 05:33 01/24/19 06:53 01/24/19 08:03 01/24/19 12:19 White Blood Count 9.5 Red Blood Count 4.44 Hemoglobin 12.2 Hematocrit 37.5 Mean Corpuscular 84.5 Volume Mean Corpuscular 27.5 L Hemoglobin Mean Corpuscular 32.5 Hemoglobin Concen t Red Cell 13.1 Distribution Width Platelet Count 200 Mean Platelet 11.3 H Volume Immature 0.600 H Granulocytes % Neutrophils % 71.1 Lymphocytes % 18.8 Monocytes % 8.1 Eosinophils % 1.0 Basophils % 0.4 Nucleated Red 0.0 Blood Cells % Immature 0.060 H Granulocytes # Neutrophils # 6.8 Lymphocytes # 1.8 Monocytes # 0.8 Eosinophils # 0.1 Basophils # 0.0 Nucleated Red 0.0 Blood Cells # Sodium Level 137 Potassium Level 3.2 L Chloride Level 96 L Carbon Dioxide 33 H Level Anion Gap 8 Blood Urea 10 Nitrogen Creatinine 0.62 Est Glomerular > 60 Filtrat Rate mL/min Glucose Level 171 Calcium Level 8.4 Phosphorus Level 3.0 Magnesium Level 1.7 Creatine Kinase 6316 H Bedside Glucose 167 180 Exam/Review of Systems Exam Vitals Vital Signs Date Temp Pulse Resp B/P (MAP) Pulse Ox O2 O2 Flow FiO2 Time Delivery Rate 01/24/19 98.8 67 20 161/68 94 08:00 (99) 01/23/19 Room Air 15:16 01/21/19 2.0 13:14 Intake and Output 01/23/19 01/23/19 01/24/19 1515:00 23:00 07:00 IntakeIntake Total 120 ml 1240 ml 1375 ml BalanceBalance 120 ml 1240 ml 1375 ml Results Results 24hrs Laboratory Tests Test 01/23/19 16:15 01/23/19 17:34 01/23/19 20:59 01/24/19 01:49 Urine Color STRAW Urine Clarity SLIGHTLY CLOUDY A Urine pH 5.0 Urine Specific 1.008 [place] Urine Ketones TRACE A Urine Nitrite NEGATIVE Urine Bilirubin NEGATIVE Urine NEGATIVE Urobilinogen Urine Leukocyte 3+ H Esterase Urine Microscopic 7 H RBC Urine Microscopic 15 H WBC Urine Bacteria MODERATE Urine Hemoglobin 2+ H Urine Random 22.05 Creatinine Urine Random 144 H Sodium Urine Glucose 2+ H Urine Total 13.0 H Protein Bedside Glucose 201 241 H 176 Test 01/24/19 05:33 01/24/19 06:53 01/24/19 08:03 01/24/19 12:19 White Blood Count 9.5 Red Blood Count 4.44 Hemoglobin 12.2 Hematocrit 37.5 Mean Corpuscular 84.5 Volume Mean Corpuscular 27.5 L Hemoglobin Mean Corpuscular 32.5 Hemoglobin Concen t Red Cell 13.1 Distribution Width Platelet Count 200 Mean Platelet 11.3 H Volume Immature 0.600 H Granulocytes % Neutrophils % 71.1 Lymphocytes % 18.8 Monocytes % 8.1 Eosinophils % 1.0 Basophils % 0.4 Nucleated Red 0.0 Blood Cells % Immature 0.060 H Granulocytes # Neutrophils # 6.8 Lymphocytes # 1.8 Monocytes # 0.8 Eosinophils # 0.1 Basophils # 0.0 Nucleated Red 0.0 Blood Cells # Sodium Level 137 Potassium Level 3.2 L Chloride Level 96 L Carbon Dioxide 33 H Level Anion Gap 8 Blood Urea 10 Nitrogen Creatinine 0.62 Est Glomerular > 60 Filtrat Rate mL/min Glucose Level 171 Calcium Level 8.4 Phosphorus Level 3.0 Magnesium Level 1.7 Creatine Kinase 6316 H Bedside Glucose 167 180 Medications Medication Current Medications Sodium Chloride 1,000 ml @ 125 mls/hr Q8H IV Last administered on 01/24/19 01:56; Admin Dose 125 MLS/HR; Start 01/21/19 at 05:22 IV Flush (NS 3 ml) 3 ml PER PROTOCOL IV ; Start 01/21/19 at 05:30 Ondansetron HCl (Zofran Inj) 4 mg Q6H PRN IV NAUSEA/VOMITING Last administered on 01/21/19 12:43; Admin Dose 4 MG; Start 01/21/19 at 05:30 Heparin Sodium (Porcine) (Heparin (5000 Units/1ml)) 5,000 unit Q12 SC Last administered on 01/24/19 08:28; Admin Dose 5,000 UNIT; Start 01/21/19 at 09:00 Albuterol/ Ipratropium (Duoneb) 3 ml Q2H RESP THERAPY PRN HHN SHORTNESS OF BREATH; Start 01/21/19 at 05:30 Acetaminophen (Tylenol Tab) 650 mg Q6H PRN PO PAIN LEVEL 1-3 OR FEVER; Start 01/21/19 at 05:30 Amlodipine Besylate (Norvasc) 10 mg DAILY PO Last administered on 01/24/19 08:33; Admin Dose 10 MG; Start 01/21/19 at 09:00 Aspirin (Halfprin) 81 mg DAILY PO Last administered on 01/24/19 08:30; Admin Dose 81 MG; Start 01/21/19 at 09:00 Bisacodyl (Dulcolax Supp) 10 mg DAILY PRN [place] CONSTIPATION; Start 01/21/19 at 05:30 Carvedilol (Coreg) 3.125 mg BID PO Last administered on 01/24/19 08:34; Admin Dose 3.125 MG; Start 01/21/19 at 09:00 Collagenase (Santyl) 1 applic DAILY TOP Last administered on 01/24/19 08:37; Admin Dose 1 APPLIC; Start 01/21/19 at 09:00 Docusate Sodium (Colace) 200 mg BID PO Last administered on 01/24/19 08:31; Admin Dose 200 MG; Start 01/21/19 at 09:00 Ferrous Sulfate (Ferrous Sulfate (Ec)) 325 mg TID PO Last administered on 01/24/19 12:21; Admin Dose 325 MG; Start 01/21/19 at 09:00 Furosemide (Lasix) 40 mg DAILY PO Last administered on 01/24/19 08:32; Admin Dose 40 MG; Start 01/21/19 at 09:00 Insulin Glargine (Lantus) 10 units HS SC Last administered on 01/23/19at 21:12; Admin Dose 10 UNITS; Start 01/21/19 at 21:00 Lactulose (Enulose) 20 gm Q6H PRN PO CONSTIPATION; Start 01/21/19 at 05:30 Lisinopril (Zestril) 10 mg DAILY PO Last administered on 01/24/19at 08:33; Admin Dose 10 MG; Start 01/21/19 at 09:00 Pantoprazole (Protonix Tab) 40 mg DAILY@06 PO Last administered on 01/24/19 05:29; Admin Dose 40 MG; Start 01/21/19 at 06:00 Polyethylene Glycol (Miralax) 17 gm DAILY PO Last administered on 01/21/19 09:08; Admin Dose 17 GM; Start 01/21/19 at 09:00 Senna/Docusate Sodium (Senokot-S) 2 tab BID PO Last administered on 01/24/19 08:32; Admin Dose 2 TAB; Start 01/21/19 at 09:00 Zolpidem Tartrate (Ambien) 5 mg HS PRN PO INSOMNIA; Start 01/21/19 at 05:30 Miscellaneous Information (Pending [facility] Order For Wound Care) This patient minor... PRN PRN XX WOUND CARE; Start 01/21/19 at 07:00 Diagnostic Test (Pha) (Accu-Chek) 1 ea 02 XX Last administered on 01/24/19at 01:56; Admin Dose 1 EA; Start 01/23/19 at 02:00 Insulin Aspart (Novolog Insulin Pen) NOVOLOG *MILD* ALGORITHM WITH MEALS BEDTIME SC Last administered on 01/24/19 12:21; Admin Dose 1 UNIT; Start 01/22/19 at 08:00 Miscellaneous Information 1 ea NOTE XX ; Start 01/22/19 at 03:00 Glucose (Glutose) 15 gm Q15M PRN PO DECREASED GLUCOSE; Start 01/22/19 at 03:00 Glucose (Glutose) 22.5 gm Q15M PRN PO DECREASED GLUCOSE; Start 01/22/19 at 03:00 Dextrose (D50w Syringe) 25 ml Q15M PRN IV DECREASED GLUCOSE; Start 01/22/19 at 03:00 Dextrose (D50w Syringe) 50 ml Q15M PRN IV DECREASED GLUCOSE; Start 01/22/19 at 03:00 Glucagon (Glucagen) 1 mg Q15M PRN IM DECREASED GLUCOSE; Start 01/22/19 at 03:00 Glucose (Glutose) 15 gm Q15M PRN BUCCAL DECREASED GLUCOSE; Start 01/22/19 at 03:00 Gabapentin (Neurontin) 300 mg BID PO Last administered on 01/24/19at 08:39; Admin Dose 300 MG; Start 01/23/19 at 21:00 Gabapentin (Neurontin) 600 mg BEFORE LUNCH PO Last administered on 01/24/19at 12:09; Admin Dose 600 MG; Start 01/24/19 at 11:30 Morphine Sulfate (Ms Contin (Er)) 15 mg BID PO Last administered on 01/24/19at 08:30; Admin Dose 15 MG; Start 01/23/19 at 13:00 Nitroglycerin (Nitroglycerin 2% Oint) 0.5 inch DAILY TD Last administered on 01/24/19at 08:35; Admin Dose 0.5 INCH; Start 01/23/19 at 13:00 Polyethylene Glycol (Miralax) 17 gm BID PO ; Start 01/23/19 at 21:00 KODY OROZCO NP Jan 24, 2019 13:30
[2019-01-24 14:00] VITALS: BP 156/70; PULSE 68; RESP 20
[2019-01-24] MEDS: LEVOFLOXACIN 500MG/D5W (PMX) 100 ML IVPB SCH (16:21)
[2019-01-24 20:00] VITALS: BP 136/61; PULSE 66; RESP 19
[2019-01-24] MEDS: INSULIN GLARGINE [LANTus] (100 UNITS/ML) SYG SC SCH (20:37)
[2019-01-25] MEDS: ACETAMINOPHEN 325 MG TAB PO PRN (02:00)
[2019-01-25] MEDS: ACCU-CHEK XX SCH (02:00)
[2019-01-25 02:33] VITALS: BP 144/65; PULSE 66; RESP 16
[2019-01-25] MEDS: SOD CHLORIDE 0.9% 1,000 ML IV SCH ×2 (03:31→12:43)
[2019-01-25] MEDS: PANTOPRAZOLE (EC) 40 MG TAB PO SCH (05:47)
[2019-01-25 07:30] VITALS: BP 138/65; PULSE 66; RESP 18
[2019-01-25] MEDS: INSULIN ASPART [NOVOLOG] 3 ML PEN SC SCH ×4 (08:00→20:37)
[2019-01-25] MEDS: COLLAGENASE 5 GM (UD JAR) TOP SCH (08:19)
[2019-01-25] MEDS: ASPIRIN (EC) 81 MG TAB PO SCH (08:21)
[2019-01-25] MEDS: AMLODIPINE 10 MG TAB PO SCH (08:21)
[2019-01-25] MEDS: GABAPENTIN 300 MG CAP PO SCH ×3 (08:21→20:20)
[2019-01-25] MEDS: LISINOPRIL 10 MG TAB PO SCH (08:22)
[2019-01-25] MEDS: FERROUS SULFATE (EC) 325 MG TAB PO SCH ×3 (08:23→20:20)
[2019-01-25] MEDS: morphine (ER) 15 MG TAB PO SCH ×2 (08:23→20:20)
[2019-01-25] MEDS: FUROSEMIDE 40 MG TAB PO SCH (08:23)
[2019-01-25] MEDS: POLYETHYLENE GLYCOL 17 GM PACKET PO SCH ×3 (08:30→20:21)
[2019-01-25] MEDS: HEPARIN 5,000 UNIT/1 ML VIAL SC SCH ×2 (08:31→20:26)
[2019-01-25] MEDS: SENNA/DOCUSATE NA (8.6MG/50MG) TAB PO SCH ×2 (08:39→20:20)
[2019-01-25] MEDS: DOCUSATE SODIUM 100 MG CAP PO SCH ×2 (08:40→20:19)
[2019-01-25] MEDS: NITROGLYCERIN 2% 1 GM OINT PKT TD SCH (09:09)
[2019-01-25] MEDS ORDERED: POTASSIUM CHLORIDE (SR) 20 MEQ TAB PO STA (09:19)
--- NOTE | 2019-01-25 09:41 | PN ---
DATE: 01/25/2019 SUBJECTIVE: The patient continues to have pain of her left knee. The patient was initiated on antib iotics. No other acute events noted. No hemoptysis, hematemesis, hematochezia. OBJECTIVE: VITAL SIGNS: Blood pressure is 130/68, respiration 18, pulse 66, temperature 98.1. HEENT: Head is normocephalic. NECK: Supple. HEART: Regular rate. LUNGS: Show diminished breath sounds at the base. ABDOMEN: Soft, nontender to palpation without rebound or guarding. EXTREMITIES: Positive for right BKA, left AKA. Please note that there is noted swelling over patien t's right knee positive tenderness to palpation. NEUROLOGIC: No focal deficits. DERMATOLOGIC: No rashes. MEDICATIONS: Reviewed. LABORATORY DATA: Has been reviewed. ASSESSMENT AND PLAN: 1. Rhabdomyolysis, etiology unclear, possible infectious etiology from cellulitis. The patient's CK levels have slowly been improving. Continue IV fluids, continue to monitor. 2. Hypokalemia. We will replete potassium chloride. 3. Hypomagnesemia, replete magnesium sulfate. 4. Peripheral arterial disease. The patient has noted right femoral arterial occlusion. Continue m edical management, was seen by vascular surgery. No further intervention needed. 5. Diabetes. Continue current insulin regimen. 6. Hypertension. Continue current blood pressure regimen. 7. Neuropathy. Continue Neurontin. 8. Dyslipidemia. Continue statin therapy. 9. Gastrointestinal and deep vein thrombosis prophylaxis. Dictated By: RYAN BELLAMY/NTS Conf#: [id number] DID#: [id number] CC: SVITLANA MODI MD;*EndCC*
[2019-01-25] MEDS ORDERED: MAGNESIUM SULFATE 2 GM/50 ML 50 ML IVPB ONE (10:30)
--- NOTE | 2019-01-25 11:44 | PN ---
Date/Time of Note Date/Time of Note DATE: 01/25/19 TIME: 11:41 Assessment/Plan VTE Prophylaxis Risk score (from Nsg)>0 risk: 8 SCD applied (from Ns): No SCD contraindicated: bilateral amputee Pharmacological prophylaxis: heparin Lines/Catheters IV Catheter Type (from [facility]): Peripheral IV Urinary Cath still in place: No Assessment/Plan Hospital Course SUBJECTIVE: Continues to complain of right lower extremity pain. OBJECTIVE: Physical Exam General: Obese,63 year-old female lying in bed in no apparent distress. HEENT: Normocephalic, atraumatic. Eyes: Anicteric sclerae, conjunctivae clear. ENT: Nasal septum midline, oral mucosa moist. Neck supple, no JVD noticed. Respiratory: Bilaterally clear breath sounds. No use of accessory muscles of respiration. No adventitious breath sounds. Cardiovascular: S1, S2 heard. Regular rate and rhythm. Abdomen: Soft, nontender, and nondistended. Bowel sounds positive in all 4 quadrants. Genitourinary: Deferred. Extremities: Below-knee amputation on the right. Above-knee amputation on the left. Neurologic: Cranial nerves II through XII grossly intact. The patient is awake, alert, and oriented. Labs & Vitals per chart ASSESSMENT & PLAN 63-year-old female with comorbidities including hypertension, diabetes mellitus, CAD status post CABG, peripheral vascular disease, diabetic neuropathy, dyslipidemia, chronic pain, and obesity who was transferred from an outside [facility] for further evaluation of right lower extremity pain and underlying rhabdomyolysis, who was admitted to inpatient setting for further treatment and evaluation. 1. Rhabdomyolysis. -Etiology unclear. -Continue IV hydration. -Hold statins. -Monitor renal function closely. -Nephrology following. 2. Right lower extremity pain. -Imaging studies from the transferring facility negative. -Right knee MRI done on 01/24/2019 showing no evidence of osteomyelitis or septic arthritis, no acute fracture or internal derangement. -Continue pain control. -Continue gabapentin. 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 -The patient does not have any evidence of acute ischemia as per vascular surgery. 3. Diabetes mellitus type 2. -Hemoglobin A1c 13.1. -Continue sliding scale insulin along with pre-meal insulin and basal insulin. 4. Hypertension. -Continue antihypertensives. 5. Diabetic neuropathy. -Continue gabapentin. 6. CAD, status post CABG. -Continue aspirin. 7. Dyslipidemia. -Hold statins. -Low-cholesterol diet. 8. Obesity. -BMI 32 kg/m. 9. DVT prophylaxis. Subcutaneous heparin. 10. Plan. -Continue IV fluids. -Continue pain control. -Antibiotic therapy to cover any infectious process that is causing the rhabdomyolysis. -Await clinical improvement. The patient was seen in collaboration with Dr. Ruffin. Result Diagram: 01/25/193 01/25/193 Results 24hrs Laboratory Tests Test 01/24/19 12:19 01/24/19 17:22 01/24/19 20:31 01/25/19 01:21 Bedside Glucose 180 214 191 142 Test 01/25/19 04:39 01/25/19 04:43 01/25/19 08:19 Uric Acid 4.3 White Blood Count 9.8 Red Blood Count 4.18 L Hemoglobin 11.4 L Hematocrit 35.4 L Mean Corpuscular 84.7 Volume Mean Corpuscular 27.3 L Hemoglobin Mean Corpuscular 32.2 Hemoglobin Concent Red Cell 13.4 Distribution Width Platelet Count 193 Mean Platelet Volume 11.3 H Immature 0.700 H Granulocytes % Neutrophils % 65.7 Lymphocytes % 22.2 Monocytes % 9.7 Eosinophils % 1.5 Basophils % 0.2 Nucleated Red Blood 0.0 Cells % Immature 0.070 H Granulocytes # Neutrophils # 6.4 Lymphocytes # 2.2 Monocytes # 1.0 H Eosinophils # 0.2 Basophils # 0.0 Nucleated Red Blood 0.0 Cells # Erythrocyte 50 H Sedimentation Rate Sodium Level 139 Potassium Level 3.2 L Chloride Level 98 Carbon Dioxide Level 33 H Anion Gap 8 Blood Urea Nitrogen 12 Creatinine 0.73 Est Glomerular > 60 Filtrat Rate mL/min Glucose Level 129 # Calcium Level 8.4 Phosphorus Level 3.4 Magnesium Level 1.6 L Creatine Kinase 5456 H C-Reactive Protein 19.7 H Bedside Glucose 101 Exam/Review of Systems Exam Vitals Vital Signs Date Temp Pulse Resp B/P (MAP) Pulse Ox O2 O2 Flow FiO2 Time Delivery Rate 01/25/19 98.1 66 18 138/65 91 Room Air 07:30 (89) 01/21/19 2.0 13:14 Intake and Output 01/24/19 01/24/1901/25/19 1414:59 22:59 06:59 IntakeIntake Total 250 ml 1175 ml 1162 ml BalanceBalance 250 ml 1175 ml 1162 ml Results Results 24hrs Laboratory Tests Test 01/24/19 12:19 01/24/19 17:22 01/24/19 20:31 01/25/19 01:21 Bedside Glucose 180 214 191 142 Test 01/25/19 04:39 01/25/19 04:43 01/25/19 08:19 Uric Acid 4.3 White Blood Count 9.8 Red Blood Count 4.18 L Hemoglobin 11.4 L Hematocrit 35.4 L Mean Corpuscular 84.7 Volume Mean Corpuscular 27.3 L Hemoglobin Mean Corpuscular 32.2 Hemoglobin Concent Red Cell 13.4 Distribution Width Platelet Count 193 Mean Platelet Volume 11.3 H Immature 0.700 H Granulocytes % Neutrophils % 65.7 Lymphocytes % 22.2 Monocytes % 9.7 Eosinophils % 1.5 Basophils % 0.2 Nucleated Red Blood 0.0 Cells % Immature 0.070 H Granulocytes # Neutrophils # 6.4 Lymphocytes # 2.2 Monocytes # 1.0 H Eosinophils # 0.2 Basophils # 0.0 Nucleated Red Blood 0.0 Cells # Erythrocyte 50 H Sedimentation Rate Sodium Level 139 Potassium Level 3.2 L Chloride Level 98 Carbon Dioxide Level 33 H Anion Gap 8 Blood Urea Nitrogen 12 Creatinine 0.73 Est Glomerular > 60 Filtrat Rate mL/min Glucose Level 129 # Calcium Level 8.4 Phosphorus Level 3.4 Magnesium Level 1.6 L Creatine Kinase 5456 H C-Reactive Protein 19.7 H Bedside Glucose 101 Medications Medication Current Medications Sodium Chloride 1,000 ml @ 75 mls/hr [id number] IV Last administered on 01/25/19at 03:31; Admin Dose 125 MLS/HR; Start 01/21/19 at 05:22 IV Flush (NS 3 ml) 3 ml PER PROTOCOL IV ; Start 01/21/19 at 05:30 Ondansetron HCl (Zofran Inj) 4 mg Q6H PRN IV NAUSEA/VOMITING Last administered on 01/21/19at 12:43; Admin Dose 4 MG; Start 01/21/19 at 05:30 Heparin Sodium (Porcine) (Heparin (5000 Units/1ml)) 5,000 unit Q12 SC Last administered on 01/25/19 08:31; Admin Dose 5,000 UNIT; Start 01/21/19 at 09:00 Albuterol/ Ipratropium (Duoneb) 3 ml Q2H RESP THERAPY PRN HHN SHORTNESS OF BREATH; Start 01/21/19 at 05:30 Acetaminophen (Tylenol Tab) 650 mg Q6H PRN PO PAIN LEVEL 1-3 OR FEVER Last administered on 01/25/19 02:00; Admin Dose 650 MG; Start 01/21/19 at 05:30 Amlodipine Besylate (Norvasc) 10 mg DAILY PO Last administered on 01/25/19 08:21; Admin Dose 10 MG; Start 01/21/19 at 09:00 Aspirin (Halfprin) 81 mg DAILY PO Last administered on 01/25/19 08:21; Admin Dose 81 MG; Start 01/21/19 at 09:00 Bisacodyl (Dulcolax Supp) 10 mg DAILY PRN [place] CONSTIPATION; Start 01/21/19 at 05:30 Carvedilol (Coreg) 3.125 mg BID PO Last administered on 01/25/19 08:22; Admin Dose 3.125 MG; Start 01/21/19 at 09:00 Collagenase (Santyl) 1 applic DAILY TOP Last administered on 01/25/19 08:19; Admin Dose 1 APPLIC; Start 01/21/19 at 09:00 Docusate Sodium (Colace) 200 mg BID PO Last administered on 01/24/19 20:33; Admin Dose 200 MG; Start 01/21/19 at 09:00 Ferrous Sulfate (Ferrous Sulfate (Ec)) 325 mg TID PO Last administered on 01/25/19 08:23; Admin Dose 325 MG; Start 01/21/19 at 09:00 Furosemide (Lasix) 40 mg DAILY PO Last administered on 01/25/19 08:23; Admin Dose 40 MG; Start 01/21/19 at 09:00 Insulin Glargine (Lantus) 10 units HS SC Last administered on 01/24/19 20:37; Admin Dose 10 UNITS; Start 01/21/19 at 21:00 Lactulose (Enulose) 20 gm Q6H PRN PO CONSTIPATION; Start 01/21/19 at 05:30 Lisinopril (Zestril) 10 mg DAILY PO Last administered on 01/25/19 08:22; Admin Dose 10 MG; Start 01/21/19 at 09:00 Pantoprazole (Protonix Tab) 40 mg DAILY@06 PO Last administered on 01/25/19 05:47; Admin Dose 40 MG; Start 01/21/19 at 06:00 Polyethylene Glycol (Miralax) 17 gm DAILY PO Last administered on 01/25/19 08:30; Admin Dose 17 GM; Start 01/21/19 at 09:00 Senna/Docusate Sodium (Senokot-S) 2 tab BID PO Last administered on 01/24/19at 20:33; Admin Dose 2 TAB; Start 01/21/19 at 09:00 Zolpidem Tartrate (Ambien) 5 mg HS PRN PO INSOMNIA; Start 01/21/19 at 05:30 Miscellaneous Information (Pending Santyl Order For Wound Care) This patient minor... PRN PRN XX WOUND CARE; Start 01/21/19 at 07:00 Diagnostic Test (Pha) (Accu-Chek) 1 ea 02 XX Last administered on 01/24/19at 01:56; Admin Dose 1 EA; Start 01/23/19 at 02:00 Insulin Aspart (Novolog Insulin Pen) NOVOLOG *MILD* ALGORITHM WITH MEALS BEDTIME SC Last administered on 01/24/19at 20:36; Admin Dose 1 UNIT; Start 01/22/19 at 08:00 Miscellaneous Information 1 ea NOTE XX ; Start 01/22/19 at 03:00 Glucose (Glutose) 15 gm Q15M PRN PO DECREASED GLUCOSE; Start 01/22/19 at 03:00 Glucose (Glutose) 22.5 gm Q15M PRN PO DECREASED GLUCOSE; Start 01/22/19 at 03:00 Dextrose (D50w Syringe) 25 ml Q15M PRN IV DECREASED GLUCOSE; Start 01/22/19 at 03:00 Dextrose (D50w Syringe) 50 ml Q15M PRN IV DECREASED GLUCOSE; Start 01/22/19 at 03:00 Glucagon (Glucagen) 1 mg Q15M PRN IM DECREASED GLUCOSE; Start 01/22/19 at 03:00 Glucose (Glutose) 15 gm Q15M PRN BUCCAL DECREASED GLUCOSE; Start 01/22/19 at 03 :00 Gabapentin (Neurontin) 300 mg BID PO Last administered on 01/25/19 08:21; Admin Dose 300 MG; Start 01/23/19 at 21:00 Gabapentin (Neurontin) 600 mg BEFORE LUNCH PO Last administered on 01/24/19 12:09; Admin Dose 600 MG; Start 01/24/19 at 11:30 Morphine Sulfate (Ms Contin (Er)) 15 mg BID PO Last administered on 01/25/19 08:23; Admin Dose 15 MG; Start 01/23/19 at 13:00 Nitroglycerin (Nitroglycerin 2% Oint) 0.5 inch DAILY TD Last administered on 01/25/19 09:09; Admin Dose 0.5 INCH; Start 01/23/19 at 13:00 Polyethylene Glycol (Miralax) 17 gm BID PO ; Start 01/23/19 at 21:00 Levofloxacin/ Dextrose 100 ml @ 100 mls/hr Q24H IVPB Last administered on 01/24/19 16:21; Admin Dose 100 MLS/HR; Start 01/24/19 at 16:00 Magnesium Sulfate 50 ml @ 25 mls/hr ONCE ONCE IVPB ; Start 01/25/19 at 10:30; Stop 01/25/19 at 12:29 KODY OROZCO NP Jan 25, 2019 11:44
[2019-01-25] MEDS ORDERED: KETOROLAC 30 MG INJ IV STA ×2 (12:10)
[2019-01-25] MEDS ORDERED: NYSTATIN 30 GM POWDER BTL TOP SCH (12:30)
[2019-01-25 14:27] VITALS: BP 157/68; PULSE 70; RESP 18
[2019-01-25] MEDS: NYSTATIN 30 GM POWDER BTL TOP SCH ×2 (15:29→22:49)
[2019-01-25] MEDS: LEVOFLOXACIN 500MG/D5W (PMX) 100 ML IVPB SCH (15:29)
[2019-01-25 20:00] VITALS: BP 133/62; PULSE 68; RESP 18
[2019-01-25] MEDS: INSULIN GLARGINE [LANTus] (100 UNITS/ML) SYG SC SCH (20:34)
[2019-01-26 02:00] VITALS: BP 132/60; PULSE 65; RESP 18
[2019-01-26] MEDS: ACCU-CHEK XX SCH (02:00)
[2019-01-26] MEDS: SOD CHLORIDE 0.9% 1,000 ML IV SCH ×2 (06:13→17:38)
[2019-01-26] MEDS: PANTOPRAZOLE (EC) 40 MG TAB PO SCH (06:17)
[2019-01-26] MEDS: ACETAMINOPHEN 325 MG TAB PO PRN ×2 (06:17→17:37)
[2019-01-26] MEDS: INSULIN ASPART [NOVOLOG] 3 ML PEN SC SCH ×4 (08:00→21:00)
[2019-01-26 08:11] VITALS: BP 133/61; PULSE 66; RESP 17
[2019-01-26] MEDS: FUROSEMIDE 40 MG TAB PO SCH (08:29)
[2019-01-26] MEDS: ASPIRIN (EC) 81 MG TAB PO SCH (08:31)
[2019-01-26] MEDS: LISINOPRIL 10 MG TAB PO SCH (08:31)
[2019-01-26] MEDS: AMLODIPINE 10 MG TAB PO SCH (08:31)
[2019-01-26] MEDS: SENNA/DOCUSATE NA (8.6MG/50MG) TAB PO SCH ×2 (08:31→20:52)
[2019-01-26] MEDS: POLYETHYLENE GLYCOL 17 GM PACKET PO SCH ×3 (08:32→20:52)
[2019-01-26] MEDS: FERROUS SULFATE (EC) 325 MG TAB PO SCH ×3 (08:32→20:49)
[2019-01-26] MEDS: DOCUSATE SODIUM 100 MG CAP PO SCH ×2 (08:33→20:49)
[2019-01-26] MEDS: morphine (ER) 15 MG TAB PO SCH ×2 (08:33→20:50)
[2019-01-26] MEDS: GABAPENTIN 300 MG CAP PO SCH ×3 (08:33→20:49)
[2019-01-26] MEDS: NITROGLYCERIN 2% 1 GM OINT PKT TD SCH (08:35)
[2019-01-26] MEDS: COLLAGENASE 5 GM (UD JAR) TOP SCH (08:37)
[2019-01-26] MEDS: NYSTATIN 30 GM POWDER BTL TOP SCH ×2 (08:39→21:07)
[2019-01-26] MEDS: HEPARIN 5,000 UNIT/1 ML VIAL SC SCH ×2 (08:40→20:57)
--- NOTE | 2019-01-26 11:44 | PN ---
Date/Time of Note Date/Time of Note DATE: 01/26/19 TIME: 11:43 Assessment/Plan VTE Prophylaxis Risk score (from Ns)>0 risk: 8 SCD applied (from Ns): No SCD contraindicated: bilateral amputee Pharmacological prophylaxis: heparin Lines/Catheters IV Catheter Type (from [facility] Peripheral IV Urinary Cath still in place: No Assessment/Plan Hospital Course SUBJECTIVE: Continues to complain of right lower extremity pain, although better. OBJECTIVE: Physical Exam General: Obese,63 year-old female lying in bed in no apparent distress. HEENT: Normocephalic, atraumatic. Eyes: Anicteric sclerae, conjunctivae clear. ENT: Nasal septum midline, oral mucosa moist. Neck supple, no JVD noticed. Respiratory: Bilaterally clear breath sounds. No use of accessory muscles of respiration. No adventitious breath sounds. Cardiovascular: S1, S2 heard. Regular rate and rhythm. Abdomen: Soft, nontender, and nondistended. Bowel sounds positive in all 4 qu adrants. Genitourinary: Deferred. Extremities: Below-knee amputation on the right. Above-knee amputation on the left. Neurologic: Cranial nerves II through XII grossly intact. The patient is awake, alert, and oriented. Labs & Vitals per chart ASSESSMENT & PLAN 63-year-old female with comorbidities including hypertension, diabetes mellitus, CAD status post CABG, peripheral vascular disease, diabetic neuropathy, dyslipidemia, chronic pain, and obesity who was transferred from an outside facility for further evaluation of right lower extremity pain and underlying rhabdomyolysis, who was admitted to inpatient setting for further treatment and evaluation. 1. Rhabdomyolysis. -Etiology unclear. -Continue IV hydration. -Hold statins. -Monitor renal function closely. -Nephrology following. 2. Right lower extremity pain. -Imaging studies from the transferring facility negative. -Right knee MRI done on 01/24/2019 showing no evidence of osteomyelitis or septic arthritis, no acute fracture or internal derangement. -Continue pain control. -Continue gabapentin. 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 -The patient does not have any evidence of acute ischemia as per vascular surgery. 3. Diabetes mellitus type 2. -Hemoglobin A1c 13.1. -Continue sliding scale insulin along with pre-meal insulin and basal insulin. 4. Hypertension. -Continue antihypertensives. 5. Diabetic neuropathy. -Continue gabapentin. 6. CAD, status post CABG. -Continue aspirin. 7. Dyslipidemia. -Hold statins. -Low-cholesterol diet. 8. Obesity. -BMI 32 kg/m. 9. DVT prophylaxis. Subcutaneous heparin. 10. Plan. -Continue IV fluids. -Continue pain control. -Antibiotic therapy to cover any infectious process that is causing the rhabdomyolysis. -Await clinical improvement. The patient was seen in collaboration with Dr. Ruffin. Result Diagram: 01/25/1944201/25/19442 Results 24hrs Laboratory Tests Test 01/25/19 12:29 01/25/19 17:16 01/25/19 18:32 01/25/19 20:32 Bedside Glucose 133 163 114 209 Test 01/26/19 02:16 01/26/19 08:02 Bedside Glucose 176 126 Exam/Review of Systems Exam Vitals Vital Signs Date Temp Pulse Resp B/P (MAP) Pulse Ox O2 O2 Flow FiO2 Time Delivery Rate 01/26/19 98.8 66 17 133/61 91 Room Air 08:11 (85) Intake and Output 01/25/19 01/25/19 01/26/19 1515:00 23:00 07:00 IntakeIntake Total 1350 ml 800 ml 700 ml BalanceBalance 1350 ml 800 ml 700 ml Results Results 24hrs Laboratory Tests Test 01/25/19 12:29 01/25/19 17:16 01/25/19 18:32 01/25/19 20:32 Bedside Glucose 133 163 114 209 Test 01/26/19 02:16 01/26/19 08:02 Bedside Glucose 176 126 Medications Medication Current Medications Sodium Chloride 1,000 ml @ 75 mls/hr [id number] IV Last administered on 01/26/19at 06:13; Admin Dose 75 MLS/HR; Start 01/21/19 at 05:22 IV Flush (NS 3 ml) 3 ml PER PROTOCOL IV ; Start 01/21/19 at 05:30 Ondansetron HCl (Zofran Inj) 4 mg Q6H PRN IV NAUSEA/VOMITING Last administered on 01/21/19at 12:43; Admin Dose 4 MG; Start 01/21/19 at 05:30 Heparin Sodium (Porcine) (Heparin (5000 Units/1ml)) 5,000 unit Q12 SC Last administered on 01/26/19 08:40; Admin Dose 5,000 UNIT; Start 01/21/19 at 09:00 Albuterol/ Ipratropium (Duoneb) 3 ml Q2H RESP THERAPY PRN HHN SHORTNESS OF CHERRY ATH; Start 01/21/19 at 05:30 Acetaminophen (Tylenol Tab) 650 mg Q6H PRN PO PAIN LEVEL 1-3 OR FEVER Last administered on 01/26/19 06:17; Admin Dose 650 MG; Start 01/21/19 at 05:30 Amlodipine Besylate (Norvasc) 10 mg DAILY PO Last administered on 01/26/19 08:31; Admin Dose 10 MG; Start 01/21/19 at 09:00 Aspirin (Halfprin) 81 mg DAILY PO Last administered on 01/26/19 08:31; Admin Dose 81 MG; Start 01/21/19 at 09:00 Bisacodyl (Dulcolax Supp) 10 mg DAILY PRN [place] CONSTIPATION; Start 01/21/19 at 05:30 Carvedilol (Coreg) 3.125 mg BID PO Last administered on 01/26/19 08:34; Admin Dose 3.125 MG; Start 01/21/19 at 09:00 Collagenase (Santyl) 1 applic DAILY TOP Last administered on 01/25/19 08:19; Admin Dose 1 APPLIC; Start 01/21/19 at 09:00 Docusate Sodium (Colace) 200 mg BID PO Last administered on 01/26/19 08:33; Admin Dose 200 MG; Start 01/21/19 at 09:00 Ferrous Sulfate (Ferrous Sulfate (Ec)) 325 mg TID PO Last administered on 01/26/19 08:32; Admin Dose 325 MG; Start 01/21/19 at 09:00 Furosemide (Lasix) 40 mg DAILY PO Last administered on 01/26/19 08:29; Admin Dose 40 MG; Start 01/21/19 at 09:00 Insulin Glargine (Lantus) 10 units HS SC Last administered on 01/25/19 20:34; Admin Dose 10 UNITS; Start 01/21/19 at 21:00 Lactulose (Enulose) 20 gm Q6H PRN PO CONSTIPATION; Start 01/21/19 at 05:30 Lisinopril (Zestril) 10 mg DAILY PO Last administered on 01/26/19at 08:31; Admin Dose 10 MG; Start 01/21/19 at 09:00 Pantoprazole (Protonix Tab) 40 mg DAILY@06 PO Last administered on 01/26/19at 06:17; Admin Dose 40 MG; Start 01/21/19 at 06:00 Polyethylene Glycol (Miralax) 17 gm DAILY PO Last administered on 01/25/19at 08:30; Admin Dose 17 GM; Start 01/21/19 at 09:00 Senna/Docusate Sodium (Senokot-S) 2 tab BID PO Last administered on 01/26/19at 08:31; Admin Dose 2 TAB; Start 01/21/19 at 09:00 Zolpidem Tartrate (Ambien) 5 mg HS PRN PO INSOMNIA; Start 01/21/19 at 05:30 Miscellaneous Information (Pending Santyl Order For Wound Care) This patient minor... PRN PRN XX WOUND CARE; Start 01/21/19 at 07:00 Diagnostic Test (Pha) (Accu-Chek) 1 ea 02 XX Last administered on 01/24/19at 01:56; Admin Dose 1 EA; Start 01/23/19 at 02:00 Insulin Aspart (Novolog Insulin Pen) NOVOLOG *MILD* ALGORITHM WITH MEALS BEDTIME SC Last administered on 01/25/19at 20:37; Admin Dose 1 UNIT; Start 01/22/19 at 08:00 Miscellaneous Information 1 ea NOTE XX ; Start 01/22/19 at 03:00 Glucose (Glutose) 15 gm Q15M PRN PO DECREASED GLUCOSE; Start 01/22/19 at 03:00 Glucose (Glutose) 22.5 gm Q15M PRN PO DECREASED GLUCOSE; Start 01/22/19 at 03:00 Dextrose (D50w Syringe) 25 ml Q15M PRN IV DECREASED GLUCOSE; Start 01/22/19 at 03:00 Dextrose (D50w Syringe) 50 ml Q15M PRN IV DECREASED GLUCOSE; Start 01/22/19 at 03:00 Glucagon (Glucagen) 1 mg Q15M PRN IM DECREASED GLUCOSE; Start 01/22/19 at 03:00 Glucose (Glutose) 15 gm Q15M PRN BUCCAL DECREASED GLUCOSE; Start 01/22/19 at 03:00 Gabapentin (Neurontin) 300 mg BID PO Last administered on 01/26/19 08:33; Admin Dose 300 MG; Start 01/23/19 at 21:00 Gabapentin (Neurontin) 600 mg BEFORE LUNCH PO Last administered on 01/25/19 12:33; Admin Dose 600 MG; Start 01/24/19 at 11:30 Morphine Sulfate (Ms Contin (Er)) 15 mg BID PO Last administered on 01/26/19 08:33; Admin Dose 15 MG; Start 01/23/19 at 13:00 Nitroglycerin (Nitroglycerin 2% Oint) 0.5 inch DAILY TD Last administered on 01/26/19 08:35; Admin Dose 0.5 INCH; Start 01/23/19 at 13:00 Polyethylene Glycol (Miralax) 17 gm BID PO Last administered on 01/26/19 08:32; Admin Dose 17 GM; Start 01/23/19 at 21:00 Levofloxacin/ Dextrose 100 ml @ 100 mls/hr Q24H IVPB Last administered on 15:29; Admin Dose 100 MLS/HR; Start 01/24/19 at 16:00 Nystatin (Nystatin Powder) 1 applic BID TOP Last administered on 01/26/19 08:39; Admin Dose 1 APPLIC; Start 01/25/19 at 14:00 KODY OROZCO NP Jan 26, 2019 11:44
[2019-01-26 14:57] VITALS: BP 127/71; PULSE 67; RESP 17
[2019-01-26] MEDS ORDERED: POTASSIUM CHLORIDE (SR) 20 MEQ TAB PO STA (15:19)
[2019-01-26 20:20] VITALS: BP 150/66; PULSE 68; RESP 18
[2019-01-26] MEDS: INSULIN GLARGINE [LANTus] (100 UNITS/ML) SYG SC SCH (20:58)
[2019-01-27] MEDS: ACCU-CHEK XX SCH ×2 (02:00→20:28)
[2019-01-27 02:23] VITALS: BP 132/65; PULSE 66; RESP 18
[2019-01-27] MEDS: PANTOPRAZOLE (EC) 40 MG TAB PO SCH (05:35)
[2019-01-27] MEDS: SOD CHLORIDE 0.9% 1,000 ML IV SCH ×3 (05:36→20:27)
[2019-01-27] MEDS: INSULIN ASPART [NOVOLOG] 3 ML PEN SC SCH ×4 (07:47→20:12)
[2019-01-27 08:02] VITALS: BP 162/67; PULSE 67; RESP 18
[2019-01-27] MEDS: FERROUS SULFATE (EC) 325 MG TAB PO SCH ×3 (08:33→20:18)
[2019-01-27] MEDS: SENNA/DOCUSATE NA (8.6MG/50MG) TAB PO SCH ×2 (08:33→20:17)
[2019-01-27] MEDS: POLYETHYLENE GLYCOL 17 GM PACKET PO SCH ×2 (08:33→20:17)
[2019-01-27] MEDS: DOCUSATE SODIUM 100 MG CAP PO SCH ×2 (08:33→20:18)
[2019-01-27] MEDS: ASPIRIN (EC) 81 MG TAB PO SCH (08:34)
[2019-01-27] MEDS: GABAPENTIN 300 MG CAP PO SCH ×3 (08:34→20:18)
[2019-01-27] MEDS: HEPARIN 5,000 UNIT/1 ML VIAL SC SCH ×2 (08:35→20:16)
[2019-01-27] MEDS: AMLODIPINE 10 MG TAB PO SCH (08:35)
[2019-01-27] MEDS: LISINOPRIL 10 MG TAB PO SCH (08:36)
[2019-01-27] MEDS: FUROSEMIDE 40 MG TAB PO SCH (08:36)
[2019-01-27] MEDS: NITROGLYCERIN 2% 1 GM OINT PKT TD SCH (08:36)
[2019-01-27] MEDS: COLLAGENASE 5 GM (UD JAR) TOP SCH (08:37)
[2019-01-27] MEDS: morphine (ER) 15 MG TAB PO SCH ×2 (08:37→20:18)
[2019-01-27] MEDS: NYSTATIN 30 GM POWDER BTL TOP SCH ×2 (08:38→20:27)
--- NOTE | 2019-01-27 10:33 | PN ---
Date/Time of Note Date/Time of Note DATE: 01/27/19 TIME: 10:32 Assessment/Plan VTE Prophylaxis Risk score (from Ns)>0 risk: 7 SCD applied (from Ns): No SCD contraindicated: bilateral amputee Pharmacological prophylaxis: heparin Lines/Catheters IV [facility] (from [facility]): Peripheral IV Urinary Cath still in place: No Assessment/Plan Hospital Course SUBJECTIVE: Continues to complain of right lower extremity pain, although better. OBJECTIVE: Physical Exam General: Obese,63 year-old female lying in bed in no apparent distress. HEENT: Normocephalic, atraumatic. Eyes: Anicteric sclerae, conjunctivae clear. ENT: Nasal septum midline, oral mucosa moist. Neck supple, no JVD noticed. Respiratory: Bilaterally clear breath sounds. No use of accessory muscles of respiration. No adventitious breath sounds. Cardiovascular: S1, S2 heard. Regular rate and rhythm. Abdomen: Soft, nontender, and nondistended. Bowel sounds positive in all 4 qu adrants. Genitourinary: Deferred. Extremities: Below-knee amputation on the right. Above-knee amputation on the left. Neurologic: Cranial nerves II through XII grossly intact. The patient is awake, alert, and oriented. Labs & Vitals per chart ASSESSMENT & PLAN 63-year-old female with comorbidities including hypertension, diabetes mellitus, CAD status post CABG, peripheral vascular disease, diabetic neuropathy, dyslipidemia, chronic pain, and obesity who was transferred from an outside facility for further evaluation of right lower extremity pain and underlying rhabdomyolysis, who was admitted to inpatient setting for further treatment and evaluation. 1. Rhabdomyolysis. -Etiology unclear. -Continue IV hydration. -Hold statins. -Monitor renal function closely. -Nephrology following. 2. Right lower extremity pain. -Imaging studies from the transferring facility negative. -Right knee MRI done on 01/24/2019 showing no evidence of osteomyelitis or septic arthritis, no acute fracture or internal derangement. -Continue pain control. -Continue gabapentin. 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 -The patient does not have any evidence of acute ischemia as per vascular surgery. 3. Diabetes mellitus type 2. -Hemoglobin A1c 13.1. -Continue sliding scale insulin along with pre-meal insulin and basal insulin. 4. Hypertension. -Continue antihypertensives. 5. Diabetic neuropathy. -Continue gabapentin. 6. CAD, status post CABG. -Continue aspirin. 7. Dyslipidemia. -Hold statins. -Low-cholesterol diet. 8. Obesity. -BMI 32 kg/m. 9. DVT prophylaxis. Subcutaneous heparin. 10. Plan. -Continue IV fluids. -Continue pain control. -Await clinical improvement. The patient was seen in collaboration with Dr. Ruffin. Result Diagram: 01/27/19 0515 01/27/19 0515 Results 24hrs Laboratory Tests Test 01/26/19 11:50 01/26/19 12:14 01/26/19 17:14 01/26/19 20:56 Erythrocyte 50 H Sedimentation Rate Sodium Level 138 Potassium Level 3.4 L Chloride Level 101 Carbon Dioxide Level 32 H Anion Gap 5 Blood Urea Nitrogen 14 Creatinine 0.72 Est Glomerular > 60 Filtrat Rate mL/min Glucose Level 122 Calcium Level 8.6 Magnesium Level 1.9 Creatine Kinase 5055 H C-Reactive Protein 20.5 H Bedside Glucose 108 141 156 Test 01/27/19 05:15 01/27/19 07:43 White Blood Count 8.6 Red Blood Count 4.04 L Hemoglobin 11.2 L Hematocrit 34.1 L Mean Corpuscular 84.4 Volume Mean Corpuscular 27.7 L Hemoglobin Mean Corpuscular 32.8 Hemoglobin Concent Red Cell 13.8 Distribution Width Platelet Count 198 Mean Platelet Volume 11.7 H Immature 0.700 H Granulocytes % Neutrophils % 61.6 Lymphocytes % 26.0 Monocytes % 8.6 Eosinophils % 2.8 Basophils % 0.3 Nucleated Red Blood 0.0 Cells % Immature 0.060 H Granulocytes # Neutrophils # 5.3 Lymphocytes # 2.2 Monocytes # 0.7 Eosinophils # 0.2 Basophils # 0.0 Nucleated Red Blood 0.0 Cells # Sodium Level 138 Potassium Level 3.7 Chloride Level 102 Carbon Dioxide Level 30 Anion Gap 6 Blood Urea Nitrogen 13 Creatinine 0.69 Est Glomerular > 60 Filtrat Rate mL/min Glucose Level 160 Calcium Level 8.9 Phosphorus Level 3.9 Magnesium Level 1.8 Bedside Glucose 126 Exam/Review of Systems Exam Vitals Vital Signs Date Temp Pulse Resp B/P (MAP) Pulse Ox O2 O2 Flow FiO2 Time Delivery Rate 01/27/19 98.2 67 18 162/67 93 08:02 (98) 01/26/19 Room Air 14:57 Intake and Output 01/26/19 01/26/19 01/27/19 1515:00 23:00 07:00 IntakeIntake Total 400 ml 1600 ml 1350 ml BalanceBalance 400 ml 1600 ml 1350 ml Results Results 24hrs Laboratory Tests Test 01/26/19 11:50 01/26/19 12:14 01/26/19 17:14 01/26/19 20:56 Erythrocyte 50 H Sedimentation Rate Sodium Level 138 Potassium Level 3.4 L Chloride Level 101 Carbon Dioxide Level 32 H Anion Gap 5 Blood Urea Nitrogen 14 Creatinine 0.72 Est Glomerular > 60 Filtrat Rate mL/min Glucose Level 122 Calcium Level 8.6 Magnesium Level 1.9 Creatine Kinase 5055 H C-Reactive Protein 20.5 H Bedside Glucose 108 141 156 Test 01/27/19 05:15 01/27/19 07:43 White Blood Count 8.6 Red Blood Count 4.04 L Hemoglobin 11.2 L Hematocrit 34.1 L Mean Corpuscular 84.4 Volume Mean Corpuscular 27.7 L Hemoglobin Mean Corpuscular 32.8 Hemoglobin Concent Red Cell 13.8 Distribution Width Platelet Count 198 Mean Platelet Volume 11.7 H Immature 0.700 H Granulocytes % Neutrophils % 61.6 Lymphocytes % 26.0 Monocytes % 8.6 Eosinophils % 2.8 Basophils % 0.3 Nucleated Red Blood 0.0 Cells % Immature 0.060 H Granulocytes # Neutrophils # 5.3 Lymphocytes # 2.2 Monocytes # 0.7 Eosinophils # 0.2 Basophils # 0.0 Nucleated Red Blood 0.0 Cells # Sodium Level 138 Potassium Level 3.7 Chloride Level 102 Carbon Dioxide Level 30 Anion Gap 6 Blood Urea Nitrogen 13 Creatinine 0.69 Est Glomerular > 60 Filtrat Rate mL/min Glucose Level 160 Calcium Level 8.9 Phosphorus Level 3.9 Magnesium Level 1.8 Bedside Glucose 126 Medications Medication Current Medications Sodium Chloride 1,000 ml @ 75 mls/hr [id number] IV Last administered on 01/27/19at 05:36; Admin Dose 75 MLS/HR; Start 01/21/19 at 05:22 IV Flush (NS 3 ml) 3 ml PER PROTOCOL IV ; Start 01/21/19 at 05:30 Ondansetron HCl (Zofran Inj) 4 mg Q6H PRN IV NAUSEA/VOMITING Last administered on 01/21/19 12:43; Admin Dose 4 MG; Start 01/21/19 at 05:30 Heparin Sodium (Porcine) (Heparin (5000 Units/1ml)) 5,000 unit Q12 SC Last administered on 01/27/19 08:35; Admin Dose 5,000 UNIT; Start 01/21/19 at 09:00 Albuterol/ Ipratropium (Duoneb) 3 ml Q2H RESP THERAPY PRN HHN SHORTNESS OF BREATH; Start 01/21/19 at 05:30 Acetaminophen (Tylenol Tab) 650 mg Q6H PRN PO PAIN LEVEL 1-3 OR FEVER Last administered on 01/26/19 17:37; Admin Dose 650 MG; Start 01/21/19 at 05:30 Amlodipine Besylate (Norvasc) 10 mg DAILY PO Last administered on 01/27/19 08:35; Admin Dose 10 MG; Start 01/21/19 at 09:00 Aspirin (Halfprin) 81 mg DAILY PO Last administered on 01/27/19 08:34; Admin Dose 81 MG; Start 01/21/19 at 09:00 Bisacodyl (Dulcolax Supp) 10 mg DAILY PRN [place] CONSTIPATION; Start 01/21/19 at 05:30 Carvedilol (Coreg) 3.125 mg BID PO Last administered on 01/27/19 08:35; Admin Dose 3.125 MG; Start 01/21/19 at 09:00 Collagenase (Santyl) 1 applic DAILY TOP Last administered on 01/25/19 08:19; Admin Dose 1 APPLIC; Start 01/21/19 at 09:00 Docusate Sodium (Colace) 200 mg BID PO Last administered on 01/27/19 08:33; Admin Dose 200 MG; Start 01/21/19 at 09:00 Ferrous Sulfate (Ferrous Sulfate (Ec)) 325 mg TID PO Last administered on 01/27/19 08:33; Admin Dose 325 MG; Start 01/21/19 at 09:00 Furosemide (Lasix) 40 mg DAILY PO Last administered on 01/27/19 08:36; Admin Dose 40 MG; Start 01/21/19 at 09:00 Insulin Glargine (Lantus) 10 units HS SC Last administered on 01/26/19 20:58; Admin Dose 10 UNITS; Start 01/21/19 at 21:00 Lactulose (Enulose) 20 gm Q6H PRN PO CONSTIPATION; Start 01/21/19 at 05:30 Lisinopril (Zestril) 10 mg DAILY PO Last administered on 01/27/19at 08:36; Admin Dose 10 MG; Start 01/21/19 at 09:00 Pantoprazole (Protonix Tab) 40 mg DAILY@06 PO Last administered on 01/27/19at 05 :35; Admin Dose 40 MG; Start 01/21/19 at 06:00 Senna/Docusate Sodium (Senokot-S) 2 tab BID PO Last administered on 01/27/19at 08:33; Admin Dose 2 TAB; Start 01/21/19 at 09:00 Zolpidem Tartrate (Ambien) 5 mg HS PRN PO INSOMNIA; Start 01/21/19 at 05:30 Diagnostic Test (Pha) (Accu-Chek) 1 ea 02 XX Last administered on 01/24/19at 01:56; Admin Dose 1 EA; Start 01/23/19 at 02:00 Insulin Aspart (Novolog Insulin Pen) NOVOLOG *MILD* ALGORITHM WITH MEALS BEDTIME SC Last administered on 01/26/19at 17:39; Admin Dose 1 UNIT; Start 01/22/19 at 08:00 Miscellaneous Information 1 ea NOTE XX ; Start 01/22/19 at 03:00 Glucose (Glutose) 15 gm Q15M PRN PO DECREASED GLUCOSE; Start 01/22/19 at 03:00 Glucose (Glutose) 22.5 gm Q15M PRN PO DECREASED GLUCOSE; Start 01/22/19 at 03:00 Dextrose (D50w Syringe) 25 ml Q15M PRN IV DECREASED GLUCOSE; Start 01/22/19 at 03:00 Dextrose (D50w Syringe) 50 ml Q15M PRN IV DECREASED GLUCOSE; Start 01/22/19 at 03:00 Glucagon (Glucagen) 1 mg Q15M PRN IM DECREASED GLUCOSE; Start 01/22/19 at 03:00 Glucose (Glutose) 15 gm Q15M PRN BUCCAL DECREASED GLUCOSE; Start 01/22/19 at 03:00 Gabapentin (Neurontin) 300 mg BID PO Last administered on 01/27/19at 08:34; Admin Dose 300 MG; Start 01/23/19 at 21:00 Gabapentin (Neurontin) 600 mg BEFORE LUNCH PO Last administered on 01/26/19 12:17; Admin Dose 600 MG; Start 01/24/19 at 11:30 Morphine Sulfate (Ms Contin (Er)) 15 mg BID PO Last administered on 01/27/19 08:37; Admin Dose 15 MG; Start 01/23/19 at 13:00 Nitroglycerin (Nitroglycerin 2% Oint) 0.5 inch DAILY TD Last administered on 01/27/19 08:36; Admin Dose 0.5 INCH; Start 01/23/19 at 13:00 Polyethylene Glycol (Miralax) 17 gm BID PO Last administered on 01/27/19at 0 8:33; Admin Dose 17 GM; Start 01/23/19 at 21:00 Nystatin (Nystatin Powder) 1 applic BID TOP Last administered on 01/27/19 08:38; Admin Dose 1 APPLIC; Start 01/25/19 at 14:00 KODY OROZCO NP Jan 27, 2019 10:33
[2019-01-27 14:00] VITALS: BP 135/63; PULSE 65; RESP 18
[2019-01-27] MEDS: INSULIN GLARGINE [LANTus] (100 UNITS/ML) SYG SC SCH (20:14)
[2019-01-27 20:15] VITALS: BP 130/61; PULSE 67; RESP 18
[2019-01-28 02:10] VITALS: BP 140/63; PULSE 65; RESP 18
[2019-01-28] MEDS: PANTOPRAZOLE (EC) 40 MG TAB PO SCH (06:29)
[2019-01-28] MEDS: SOD CHLORIDE 0.9% 1,000 ML IV SCH (06:34)
[2019-01-28] MEDS ORDERED: POTASSIUM CHLORIDE (SR) 10 MEQ TAB PO ONE (08:00)
[2019-01-28 08:07] VITALS: BP 141/63; PULSE 67; RESP 17
[2019-01-28] MEDS: COLLAGENASE 5 GM (UD JAR) TOP SCH (08:21)
[2019-01-28] MEDS: DOCUSATE SODIUM 100 MG CAP PO SCH ×2 (08:21→20:34)
[2019-01-28] MEDS: GABAPENTIN 300 MG CAP PO SCH ×3 (08:21→20:35)
[2019-01-28] MEDS: FERROUS SULFATE (EC) 325 MG TAB PO SCH ×3 (08:22→20:35)
[2019-01-28] MEDS: FUROSEMIDE 40 MG TAB PO SCH (08:22)
[2019-01-28] MEDS: LISINOPRIL 10 MG TAB PO SCH (08:23)
[2019-01-28] MEDS: morphine (ER) 15 MG TAB PO SCH ×2 (08:23→20:35)
[2019-01-28] MEDS: SENNA/DOCUSATE NA (8.6MG/50MG) TAB PO SCH ×2 (08:23→20:34)
[2019-01-28] MEDS: AMLODIPINE 10 MG TAB PO SCH (08:24)
[2019-01-28] MEDS: NITROGLYCERIN 2% 1 GM OINT PKT TD SCH (08:25)
[2019-01-28] MEDS: ASPIRIN (EC) 81 MG TAB PO SCH (08:25)
[2019-01-28] MEDS: NYSTATIN 30 GM POWDER BTL TOP SCH ×2 (08:26→20:38)
[2019-01-28] MEDS: POLYETHYLENE GLYCOL 17 GM PACKET PO SCH ×2 (08:26→20:34)
[2019-01-28] MEDS: HEPARIN 5,000 UNIT/1 ML VIAL SC SCH ×2 (08:27→20:37)
[2019-01-28] MEDS: INSULIN ASPART [NOVOLOG] 3 ML PEN SC SCH ×4 (08:28→20:33)
--- NOTE | 2019-01-28 09:44 | PN ---
DATE: 01/28/2019 SUBJECTIVE: The patient is stable, no events overnight. The patient's pain is present but improving . OBJECTIVE: VITAL SIGNS: Blood pressure is 141/63, respirations 17, pulse 67, temperature 98.8. HEENT: Head is normocephalic. NECK: Supple. HEART: Regular rate. LUNGS: Show diminished breath sounds at the base. ABDOMEN: Soft, nontender to palpation without rebound or guarding. EXTREMITIES: Negative for clubbing, cyanosis, no edema. DERMATOLOGIC: No rashes. MUSCULOSKELETAL: No joint effusion. NEUROLOGIC: No change in exam. MEDICATIONS: The patient's medications have been reviewed. LABORATORY DATA: From 01/28/2019 was reviewed. The patient's CK level 01/27/19 was reviewed. ASSESSMENT AND PLAN: 1. Rhabdomyolysis, etiology is unclear, possibly infectious, trauma, questionable cellulitis. CK le vels are slowly improving. Continue IV fluids. We will deescalate and monitor CK levels closely. 2. Hypokalemia and hypomagnesemia. Continue to monitor and replete. 3. Peripheral arterial disease. Continue medical management. The patient will be evaluated by [facility] ular surgery. No need for intervention. 4. Diabetes. Continue current insulin regimen. 5. Hypertension. Continue current blood pressure regimen. 6. Neuropathy. Continue Neurontin. 7. Dyslipidemia. Continue statin therapy. 8. Gastrointestinal and deep vein thrombosis prophylaxis. Dictated By: RYAN GILLIS DO NR/NTS Conf#: [id number] DID#: [id number] CC: SVITLANA MODI MD; SAMIA Buckley;*[facility]*
--- NOTE | 2019-01-28 10:31 | PN ---
Date/Time of Note Date/Time of Note DATE: 01/28/19 TIME: 10:30 Assessment/Plan VTE Prophylaxis Risk score (from Nsg)>0 risk: 3 SCD applied (from Ns): No SCD contraindicated: bilateral amputee Pharmacological prophylaxis: heparin Lines/Catheters IV Catheter Type (from Nrs): Peripheral IV Urinary Cath still in place: No Assessment/Plan Hospital Course SUBJECTIVE: Continues to complain of right lower extremity pain, although better. OBJECTIVE: Physical Exam General: Obese,63 year-old female lying in bed in no apparent distress. HEENT: Normocephalic, atraumatic. Eyes: Anicteric sclerae, conjunctivae clear. ENT: Nasal septum midline, oral mucosa moist. Neck supple, no JVD noticed. Respiratory: Bilaterally clear breath sounds. No use of accessory muscles of respiration. No adventitious breath sounds. Cardiovascular: S1, S2 heard. Regular rate and rhythm. Abdomen: Soft, nontender, and nondistended. Bowel sounds positive in all 4 qu adrants. Genitourinary: Deferred. Extremities: Below-knee amputation on the right. Above-knee amputation on the left. Neurologic: Cranial nerves II through XII grossly intact. The patient is awake, alert, and oriented. Labs & Vitals per chart ASSESSMENT & PLAN 63-year-old female with comorbidities including hypertension, diabetes mellitus, CAD status post CABG, peripheral vascular disease, diabetic neuropathy, dyslipidemia, chronic pain, and obesity who was transferred from an outside facility for further evaluation of right lower extremity pain and underlying rhabdomyolysis, who was admitted to inpatient setting for further treatment and evaluation. 1. Rhabdomyolysis. -Etiology unclear. -Continue IV hydration. -Hold statins. -Monitor renal function closely. -Nephrology following. 2. Right lower extremity pain. -Imaging studies from the transferring facility negative. -Right knee MRI done on 01/24/2019 showing no evidence of osteomyelitis or septic arthritis, no acute fracture or internal derangement. -Continue pain control. -Continue gabapentin. 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 -The patient does not have any evidence of acute ischemia as per vascular surgery. 3. Diabetes mellitus type 2. -Hemoglobin A1c 13.1. -Continue sliding scale insulin along with pre-meal insulin and basal insulin. 4. Hypertension. -Continue antihypertensives. 5. Diabetic neuropathy. -Continue gabapentin. 6. CAD, status post CABG. -Continue aspirin. 7. Dyslipidemia. -Hold statins. -Low-cholesterol diet. 8. Obesity. -BMI 32 kg/m. 9. DVT prophylaxis. Subcutaneous heparin. 10. Plan. -Continue IV fluids. -Continue pain control. -Await clinical improvement (until the CK is less). The patient was seen in collaboration with Dr. Rubio. Result Diagram: [birth year] Results 24hrs Laboratory Tests Test 01/27/19 12:08 01/27/19 17:25 01/27/19 20:12 01/28/19 05:48 Bedside Glucose 149 157 163 White Blood Count 8.2 Red Blood Count 4.12 L Hemoglobin 11.2 L Hematocrit 34.7 L Mean Corpuscular 84.2 Volume Mean Corpuscular 27.2 L Hemoglobin Mean Corpuscular 32.3 Hemoglobin Concent Red Cell 13.8 Distribution Width Platelet Count 227 Mean Platelet Volume 10.8 H Immature 1.100 H Granulocytes % Neutrophils % 61.4 Lymphocytes % 25.6 Monocytes % 8.8 Eosinophils % 2.6 Basophils % 0.5 Nucleated Red Blood 0.0 Cells % Immature 0.090 H Granulocytes # Neutrophils # 5.1 Lymphocytes # 2.1 Monocytes # 0.7 Eosinophils # 0.2 Basophils # 0.0 Nucleated Red Blood 0.0 Cells # Sodium Level 138 Potassium Level 3.4 L Chloride Level 101 Carbon Dioxide Level 30 Anion Gap 7 Blood Urea Nitrogen 14 Creatinine 0.70 Est Glomerular > 60 Filtrat Rate mL/min Glucose Level 164 Calcium Level 9.1 Phosphorus Level 4.7 Magnesium Level 1.8 Test 01/28/19 08:13 Bedside Glucose 145 Exam/Review of Systems Exam Vitals Vital Signs Date Temp Pulse Resp B/P (MAP) Pulse Ox O2 O2 Flow FiO2 Time Delivery Rate 01/28/19 98.8 67 17 141/63 96 Nasal 2.0 08:07 (89) Cannula Intake and Output 01/27/19 01/27/19 01/28/19 1515:00 23:00 07:00 IntakeIntake Total 2050 ml 1263 ml BalanceBalance 2050 ml 1263 ml Results Results 24hrs Laboratory Tests Test 01/27/19 12:08 01/27/19 17:25 01/27/19 20:12 01/28/19 05:48 Bedside Glucose 149 157 163 White Blood Count 8.2 Red Blood Count 4.12 L Hemoglobin 11.2 L Hematocrit 34.7 L Mean Corpuscular 84.2 Volume Mean Corpuscular 27.2 L Hemoglobin Mean Corpuscular 32.3 Hemoglobin Concent Red Cell 13.8 Distribution Width Platelet Count 227 Mean Platelet Volume 10.8 H Immature 1.100 H Granulocytes % Neutrophils % 61.4 Lymphocytes % 25.6 Monocytes % 8.8 Eosinophils % 2.6 Basophils % 0.5 Nucleated Red Blood 0.0 Cells % Immature 0.090 H Granulocytes # Neutrophils # 5.1 Lymphocytes # 2.1 Monocytes # 0.7 Eosinophils # 0.2 Basophils # 0.0 Nucleated Red Blood 0.0 Cells # Sodium Level 138 Potassium Level 3.4 L Chloride Level 101 Carbon Dioxide Level 30 Anion Gap 7 Blood Urea Nitrogen 14 Creatinine 0.70 Est Glomerular > 60 Filtrat Rate mL/min Glucose Level 164 Calcium Level 9.1 Phosphorus Level 4.7 Magnesium Level 1.8 Test 01/28/19 08:13 Bedside Glucose 145 Medications Medication Current Medications Sodium Chloride 1,000 ml @ 40 mls/hr Q24H IV Last administered on 01/28/19at 06:34; Admin Dose 75 MLS/HR; Start 01/21/19 at 05:22 IV Flush (NS 3 ml) 3 ml PER PROTOCOL IV ; Start 01/21/19 at 05:30 Ondansetron HCl (Zofran Inj) 4 mg Q6H PRN IV NAUSEA/VOMITING Last administered on 01/21/19at 12:43; Admin Dose 4 MG; Start 01/21/19 at 05:30 Heparin Sodium (Porcine) (Heparin (5000 Units/1ml)) 5,000 unit Q12 SC Last administered on 01/28/19at 08:27; Admin Dose 5,000 UNIT; Start 01/21/19 at 09:00 Albuterol/ Ipratropium (Duoneb) 3 ml Q2H RESP THERAPY PRN HHN SHORTNESS OF BREATH; Start 01/21/19 at 05:30 Acetaminophen (Tylenol Tab) 650 mg Q6H PRN PO PAIN LEVEL 1-3 OR FEVER Last administered on 01/26/19at 17:37; Admin Dose 650 MG; Start 01/21/19 at 05:30 Amlodipine Besylate (Norvasc) 10 mg DAILY PO Last administered on 01/28/19 08:24; Admin Dose 10 MG; Start 01/21/19 at 09:00 Aspirin (Halfprin) 81 mg DAILY PO Last administered on 01/28/19 08:25; Admin Dose 81 MG; Start 01/21/19 at 09:00 Bisacodyl (Dulcolax Supp) 10 mg DAILY PRN FL CONSTIPATION; Start 01/21/19 at 05:30 Carvedilol (Coreg) 3.125 mg BID PO Last administered on 01/28/19 08:22; Admin Dose 3.125 MG; Start 01/21/19 at 09:00 Collagenase (Santyl) 1 applic DAILY TOP Last administered on 01/28/19 08:21; Admin Dose 1 APPLIC; Start 01/21/19 at 09:00 Docusate Sodium (Colace) 200 mg BID PO Last administered on 01/28/19 08:21; Admin Dose 200 MG; Start 01/21/19 at 09:00 Ferrous Sulfate (Ferrous Sulfate (Ec)) 325 mg TID PO Last administered on 01/28/19 08:22; Admin Dose 325 MG; Start 01/21/19 at 09:00 Furosemide (Lasix) 40 mg DAILY PO Last administered on 01/28/19 08:22; Admin Dose 40 MG; Start 01/21/19 at 09:00 Insulin Glargine (Lantus) 10 units HS SC Last administered on 01/27/19 20:14; Admin Dose 10 UNITS; Start 01/21/19 at 21:00 Lactulose (Enulose) 20 gm Q6H PRN PO CONSTIPATION; Start 01/21/19 at 05:30 Lisinopril (Zestril) 10 mg DAILY PO Last administered on 01/28/19 08:23; Admin Dose 10 MG; Start 01/21/19 at 09:00 Pantoprazole (Protonix Tab) 40 mg DAILY@06 PO Last administered on 01/28/19 06:29; Admin Dose 40 MG; Start 01/21/19 at 06:00 Senna/Docusate Sodium (Senokot-S) 2 tab BID PO Last administered on 01/28/19 08:23; Admin Dose 2 TAB; Start 01/21/19 at 09:00 Zolpidem Tartrate (Ambien) 5 mg HS PRN PO INSOMNIA; Start 01/21/19 at 05:30 Diagnostic Test (Pha) (Accu-Chek) 1 ea 02 XX Last administered on 01/24/19at 01:56; Admin Dose 1 EA; Start 01/23/19 at 02:00 Insulin Aspart (Novolog Insulin Pen) NOVOLOG *MILD* ALGORITHM WITH MEALS BEDTIM E SC Last administered on 01/28/19at 08:28; Admin Dose 1 UNIT; Start 01/22/19 at 08:00 Miscellaneous Information 1 ea NOTE XX ; Start 01/22/19 at 03:00 Glucose (Glutose) 15 gm Q15M PRN PO DECREASED GLUCOSE; Start 01/22/19 at 03:00 Glucose (Glutose) 22.5 gm Q15M PRN PO DECREASED GLUCOSE; Start 01/22/19 at 03:00 Dextrose (D50w Syringe) 25 ml Q15M PRN IV DECREASED GLUCOSE; Start 01/22/19 at 03:00 Dextrose (D50w Syringe) 50 ml Q15M PRN IV DECREASED GLUCOSE; Start 01/22/19 at 03:00 Glucagon (Glucagen) 1 mg Q15M PRN IM DECREASED GLUCOSE; Start 01/22/19 at 03:00 Glucose (Glutose) 15 gm Q15M PRN BUCCAL DECREASED GLUCOSE; Start 01/22/19 at 03:00 Gabapentin (Neurontin) 300 mg BID PO Last administered on 01/28/19at 08:21; Admin Dose 300 MG; Start 01/23/19 at 21:00 Gabapentin (Neurontin) 600 mg BEFORE LUNCH PO Last administered on 01/27/19at 12:32; Admin Dose 600 MG; Start 01/24/19 at 11:30 Morphine Sulfate (Ms Contin (Er)) 15 mg BID PO Last administered on 01/28/19at 08:23; Admin Dose 15 MG; Start 01/23/19 at 13:00 Nitroglycerin (Nitroglycerin 2% Oint) 0.5 inch DAILY TD Last administered on 01/28/19at 08:25; Admin Dose 0.5 INCH; Start 01/23/19 at 13:00 Polyethylene Glycol (Miralax) 17 gm BID PO Last administered on 01/27/19at 20:17; Admin Dose 17 GM; Start 01/23/19 at 21:00 Nystatin (Nystatin Powder) 1 applic BID TOP Last administered on 01/28/19at 08:26; Admin Dose 1 APPLIC; Start 01/25/19 at 14:00 KODY OROZCO NP Jan 28, 2019 10:31
[2019-01-28] MEDS ORDERED: LACTULOSE 30ML CUP PO ONE (11:00)
[2019-01-28 14:00] VITALS: BP 130/85; PULSE 67; RESP 17
[2019-01-28 20:31] VITALS: BP 114/54; PULSE 67; RESP 16
[2019-01-28] MEDS: INSULIN GLARGINE [LANTus] (100 UNITS/ML) SYG SC SCH (20:37)
[2019-01-29] MEDS: ACCU-CHEK XX SCH (01:27)
[2019-01-29 01:56] VITALS: BP 123/60; PULSE 66; RESP 16
[2019-01-29] MEDS: PANTOPRAZOLE (EC) 40 MG TAB PO SCH (05:27)
[2019-01-29 07:40] VITALS: BP 144/66; PULSE 66; RESP 18
[2019-01-29 08:00] VITALS: BP 148/66; PULSE 66; RESP 20
[2019-01-29] MEDS: INSULIN ASPART [NOVOLOG] 3 ML PEN SC SCH ×3 (08:00→18:07)
[2019-01-29] MEDS: AMLODIPINE 10 MG TAB PO SCH (08:53)
[2019-01-29] MEDS: DOCUSATE SODIUM 100 MG CAP PO SCH ×2 (08:53→09:00)
[2019-01-29] MEDS: FUROSEMIDE 40 MG TAB PO SCH (08:54)
[2019-01-29] MEDS: POLYETHYLENE GLYCOL 17 GM PACKET PO SCH ×2 (08:54→09:00)
[2019-01-29] MEDS: FERROUS SULFATE (EC) 325 MG TAB PO SCH ×2 (08:54→12:51)
[2019-01-29] MEDS: ASPIRIN (EC) 81 MG TAB PO SCH (08:54)
[2019-01-29] MEDS: SENNA/DOCUSATE NA (8.6MG/50MG) TAB PO SCH (08:55)
[2019-01-29] MEDS: LISINOPRIL 10 MG TAB PO SCH (08:55)
[2019-01-29] MEDS: morphine (ER) 15 MG TAB PO SCH (08:55)
[2019-01-29] MEDS: GABAPENTIN 300 MG CAP PO SCH ×2 (08:55→12:51)
[2019-01-29] MEDS: NYSTATIN 30 GM POWDER BTL TOP SCH (08:56)
[2019-01-29] MEDS: COLLAGENASE 5 GM (UD JAR) TOP SCH (08:56)
[2019-01-29] MEDS: NITROGLYCERIN 2% 1 GM OINT PKT TD SCH (08:56)
[2019-01-29] MEDS: HEPARIN 5,000 UNIT/1 ML VIAL SC SCH (08:58)
--- NOTE | 2019-01-29 09:55 | PN ---
DATE: 01/29/2019 SUBJECTIVE: The patient is stable, no events overnight. No fevers, chills, nausea, or vomiting. OBJECTIVE: VITAL SIGNS: Blood pressure is 144/66, respirations 18, pulse 66, temperature 98.0. HEENT: Head is normocephalic. NECK: Supple. HEART: Regular rate. LUNGS: Show diminished breath sounds at the base. ABDOMEN: Soft, nontender to palpation without rebound or guarding. EXTREMITIES: Negative for clubbing, cyanosis, no edema. DERMATOLOGIC: No rashes. MUSCULOSKELETAL: No joint effusion. NEUROLOGIC: No change in exam. MEDICATIONS: Reviewed. LABORATORY DATA: Reviewed. CK level has been reviewed. ASSESSMENT AND PLAN: 1. Rhabdomyolysis, etiology is unclear, possibly infectious, trauma, questionable cellulitis. CK le vels have been improving. We will discontinue IV fluids and monitor. 2. Hypokalemia and hypomagnesemia. Continue to monitor and replete as needed. 3. Peripheral arterial disease. Continue medical management. 4. Diabetes. Continue current insulin regimen. 5. Hypertension. Continue current blood pressure regimen. 6. Neuropathy. Continue Neurontin. 7. Dyslipidemia. Continue statin therapy. 8. Gastrointestinal and deep vein thrombosis prophylaxis. 9. Discharge planning. Dictated By: RYAN GILLIS DO NR/NTS Conf#: [id number] DID#: [id number] CC: SVITLANA MODI MD; SAMIA Buckley;*EndCC*
--- NOTE | 2019-01-29 11:41 | DS ---
Date/Time of Note Date/Time of Note DATE: 01/29/19 TIME: 11:39 Discharge Summary Admission/Discharge Info Admit Date/Time Jan 20, 2019 at 23:08 Discharge Date/Time Discharge Diagnosis Rhabdomyolysis Patient Condition: Stable Hospital Course The patient was found to have elevated CK levels. She was treated with IV fluids and levels declined. She had no evidence of renal injury Pain was controlled with PO morphine. She declined an opiate Rx at discharge given risk for addiction MRI was negative for acute knee pathology She requested to be discharged home with follow up with usual providers Home Meds Active Scripts Tramadol HCl (Tramadol HCl) 50 Mg Tablet, 50 MG PO Q6 PRN for PAIN, #7 TAB Prov:DANIEL BRENNAN DO 05/05/16 Tramadol HCl (Tramadol HCl) 50 Mg Tablet, 50 MG PO Q6 PRN for PAIN, #8 TAB Prov:DANIEL BRENNAN DO 05/05/16 Methadone Hcl* (Methadone*) 5 Mg/5 Ml Solution, 2 MG PO Q6 for 14 Days Prov:BRANDO CARTER 03/28/16 Sennosides/Docusate Sodium (Senna-Time S Tablet) 1 Udtab Tablet, 2 TAB PO BID for 30 Days, TAB Prov:BRADNO CARTER 03/28/16 Polyethylene Glycol* (Miralax*) 17 Gm Powd.pack, 17 GM PO DAILY for 30 Days Prov:BRANDO CARTER 03/28/16 Collagenase* (Santyl*) 30 Gm Oint..gm., 1 APPLIC TOP DAILY for 30 Days Prov:BRANDO CARTER 03/28/16 Pantoprazole* (Pantoprazole*) 40 Mg Tabec, 40 MG PO DAILY@06 for 30 Days Prov:GOLD,REHANA V[employer] 01/29/16 Ondansetron Hcl* (Zofran*) 2 Mg/Ml Soln, 4 MG IV Q4H PRN for NAUSEA AND/OR VOMITING for 30 Days Prov:GOLD,REHANA V[employer] 01/29/16 Insulin Aspart* (Novolog Insulin Pen*) 100 Unit/Ml Soln, 0 UNIT SC WITH MEALS BEDTIME for 30 Days Prov:GOLDREHANA V[employer]YING [employer] 01/29/16 Heparin Sodium,Porcine/Pf (Heparin Na 5,000 Units/0.5 Ml) 5,000 Unit/0.5 Ml Soln, 5000 UNIT SC Q12 for 30 Days Prov:GOLDOMKARA V[employer] 01/29/16 Gabapentin* (Neurontin*) 300 Mg Cap, 300 MG PO TID for 30 Days, CAP Prov:GOLD,REHANA V[employer] 01/29/16 Glucagon* (Glucagen*) 1 Mg Soln, 1 MG IM Q15M PRN for DECREASED GLUCOSE for 30 Days Prov:GOLDOMKARA V[employer]YING [employer] 01/29/16 Bisacodyl* (Bisacodyl*) 10 Mg Supp, 10 MG NM DAILY PRN for CONSTIPATION for 30 Days, SUPP Prov:GOLDREHANA V[employer]YING [employer] 01/29/16 Acetaminophen* (Tylenol*) 325 Mg Tab, 650 MG PO Q6H PRN for PAIN LEVEL 1-3 OR FEVER for 30 Days, TAB Prov:GOLDOMKARA V[employer] 01/29/16 Zolpidem Tartrate (Ambien Larry) 5 Mg Tab, 5 MG PO HS PRN for INSOMNIA for 30 Days, TAB Prov:GOLDREHANA V[employer]YING [employer] 01/28/16 Insulin Glargine* (Lantus*) 100 Unit/Ml Soln, 10 UNIT SC HS for 30 Days Prov:REHANA GOLD V[employer] 01/28/16 Furosemide* (Lasix*) 20 Mg Tab, 40 MG PO DAILY for 30 Days, TAB Prov:GOLDOMKARA [employer] 01/28/16 Ferrous Sulfate* (Ferrous Sulfate*) 325 Mg Tabec, 325 MG PO TID for 30 Days, TAB Prov:GOLDREHANA V[employer]YING [employer] 01/28/16 Cholecalciferol* (Vitamin D3*) 2,000 Unit Cap, 2000 UNIT PO DAILY for 30 Days, CAP Prov:GOLDOMKARA V[employer]YING [employer]ACH[employer] 01/28/16 Carvedilol* (Coreg*) 3.125 Mg Tab, 3.125 MG PO BID for 30 Days, TAB Prov:GOLD,REHANA V[employer]YING [employer] 01/28/16 Atorvastatin Calcium* (Atorvastatin Calcium*) 20 Mg Tab, 80 MG PO HS for 30 Days, TAB Prov:GOLDOMKARA V[employer] 01/28/16 Aspirin* (Aspirin* EC) 81 Mg Tabec, 81 MG PO DAILY for 30 Days Prov:REHANA GOLD VCiara [employer]YING [employer]ACH[employer] 01/28/16 Amlodipine Besylate* (Norvasc*) 10 Mg Tab, 10 MG PO DAILY for 30 Days, TAB Prov:REHANA GOLD [employer] 01/28/16 Reported Medications Gabapentin (GABAPENTIN) 300 Mg/6 Ml Solution, 300 MG PO TID 01/21/19 Omeprazole* (Omeprazole*) 20 Mg Capsule.dr, 20 MG PO DAILY, #30 CAP 01/21/19 Atorvastatin* (Atorvastatin*) 80 Mg Tablet, 80 MG PO QHS, #30 TAB 01/21/19 Carvedilol* (Carvedilol*) 3.125 Mg Tablet, 3.125 MG PO BID, #60 TAB 01/21/19 Aspirin* (Aspirin* (EC)) 81 Mg Tablet.dr, 81 MG PO DAILY, TAB 01/21/19 Lisinopril* (Lisinopril*) 10 Mg Tablet, 10 MG PO DAILY, #30 TAB 01/21/19 Docusate Sodium* (Colace*) 100 Mg Capsule, 200 MG PO BID, #60 CAP 01/21/19 Amlodipine Besylate* (Amlodipine Besylate*) 10 Mg Tablet, 10 MG PO DAILY, #30 TAB 01/21/19 Sitagliptin* (Januvia*) 100 Mg Tablet, 100 MG PO BID, #30 TAB 01/21/19 Lactulose* (Lactulose*) 20 Gm/30 Ml Solution, 20 GM PO Q6H PRN for CONSTIPATION, ML 03/20/16 Primary Care Provider Not On Staff Doctor Pending Labs Laboratory Tests Test 01/28/19 12:03 01/28/19 17:27 01/28/19 20:32 01/29/19 04:48 Bedside 224 132 164 Glucose mg/dL (70-220) mg/dL (70-220) mg/dL (70-220) White Blood 9.2 Count 10^3/ul (4.8-1 0.8) Red Blood 4.55 Count 10^6/ul (4.20- 5.40) Hemoglobin 12.3 g/dl (12.0-16. 0) Hematocrit 38.8 % (37.0-47.0) Mean 85.3 Corpuscular fl (82.0-101.0 Volume ) Mean 27.0 Corpuscular pg (29.0-33.0) Hemoglobin Mean 31.7 Corpuscular g/dl (32.0-37. Hemoglobin Conc 0) ent Red Cell 13.9 Distribution % (11.5-14.5) Width Platelet Count 257 10^3/UL (140-4 15) Mean Platelet 10.7 Volume fl (7.4-10.4) Immature 1.400 Granulocytes % % (0.001-0.429 ) Neutrophils % 61.1 % (39.0-77.0) Lymphocytes % 25.7 % (15.0-51.0) Monocytes % 8.3 % (0.0-11.0) Eosinophils % 2.8 % (0.0-7.0) Basophils % 0.7 % (0.0-2.0) Nucleated Red 0.0 Blood Cells % /100WBC (0.0-0 .0) Immature 0.130 Granulocytes # 10^3/ul (0.0-0 .031) Neutrophils # 5.6 10^3/ul (1.6-7 .5) Lymphocytes # 2.4 10^3/ul (0.8-2 .9) Monocytes # 0.8 10^3/ul (0.3-0 .9) Eosinophils # 0.3 10^3/ul (0.0-0 .5) Basophils # 0.1 10^3/ul (0.0-0 .1) Nucleated Red 0.0 Blood Cells # 10^3/ul (0.0-0 .0) Sodium Level 139 mmol/L (135-14 4) Potassium 3.9 Level mmol/L (3.5-5. 1) Chloride Level 101 mmol/L (97-110 ) Carbon Dioxide 30 Level mmol/L (21-31) Anion Gap 8 (5-13) Blood Urea 15 Nitrogen mg/dl (7-20) Creatinine 0.74 mg/dl (0.44-1. 00) Est Glomerular > 60 Filtrat mL/min (>60) Rate mL/min Glucose Level 159 mg/dl (70-220) Calcium Level 9.3 mg/dl (8.4-10. 2) Phosphorus 4.6 Level mg/dl (2.5-4.9 ) Magnesium 1.9 Level mg/dl (1.7-2.5 ) Creatine 1311 Kinase IU/L (23-200) Test 01/29/19 08:14 Bedside 130 Glucose mg/dL (70-220) MELODY GALVAN MD Jan 29, 2019 11:41
[2019-01-29 14:00] VITALS: BP 142/64; PULSE 65; RESP 20
== END 2019-01-29 18:40 | disposition home or self-care (01) | DRG 558 ==
LOC: PP2 23:08 → UNDODISIN 01-25 11:42
PROVIDERS: ADMIT Internal Medicine; ATTEND Internal Medicine
DX: M62.82 Rhabdomyolysis (principal); E87.6 Hypokalemia; E83.42 Hypomagnesemia; I10 Essential (primary) hypertension; E11.40 Type 2 diabetes mellitus with diabetic neuropathy, unspecified; E78.5 Hyperlipidemia, unspecified; E11.51 Type 2 diabetes mellitus with diabetic peripheral angiopathy without gangrene; G89.29 Other chronic pain; M79.661 Pain in right lower leg; E66.9 Obesity, unspecified; Z68.32 Body mass index [BMI] 32.0-32.9, adult; Z95.1 Presence of aortocoronary bypass graft; Z89.511 Acquired absence of right leg below knee; Z89.612 Acquired absence of left leg above knee
CPT/HCPCS: 73721; 80048; 80053; 80061; 81001; 81003; 82043; 82550; 82553; 82962; 83036; 83735; 84100; 84155; 84300; 84484; 84560; 85025; 85651; 86140; 87081; 93922; J1644; J1815; J1885; J1956; J2270; J2405; J3475; J7030